=== PATIENT | female | born 1950 | race Caucasian/White ===

== ENCOUNTER 2017-07-10 16:49 | Inpatient (IN) | payer MEDICARE, MEDICAID ==
[2017-07-10] MEDS ORDERED: Morphine INJ* 2 MG/ML 1 ML SYRINGE IV ONE (17:03)
[2017-07-10] MEDS ORDERED: Ondansetron INJ* 2 MG/ML VIAL IV ONE (17:03)
--- NOTE | 2017-07-10 18:00 | RAD ---
HISTORY: Right hip fracture, fall, pain COMPARISONS: February 17, 2016 VIEWS:1: Single frontal portable view of the chest at 5:19 PM FINDINGS: LINES AND TUBES: None. CARDIOMEDIASTINAL SILHOUETTE: The cardiomediastinal silhouette is normal for portable technique. PLEURA: The costophrenic angles are sharp. No pleural abnormalities are noted. LUNG PARENCHYMA: The lungs are clear. ABDOMEN: The upper abdomen is clear. There is no subphrenic gas. BONES AND SOFT TISSUES: Degenerative changes are noted IMPRESSION: NO ACTIVE CARDIOPULMONARY DISEASE.
--- NOTE | 2017-07-10 18:02 | RAD ---
HISTORY: Right hip fracture, fall, pain COMPARISONS: Report of plain film dated July 10, 2017 VIEWS: 3, Frontal view of the pelvis with frontal and crosstable lateral views of the right hip FINDINGS: BONE DENSITY: There is diffuse osteopenia. BONES: There is a minimally displaced fracture of the right femoral neck. This appears acute. There is a fracture of the inferior pubic ramus on the right. There is callus formation suggestive of subacute fracture. JOINTS: There is no arthropathy. ALIGNMENT: There is no dislocation. SOFT TISSUES: Unremarkable. OTHER FINDINGS: None. IMPRESSION: 1. MINIMALLY DISPLACED ACUTE FRACTURE OF THE RIGHT FEMORAL NECK. 2. NONDISPLACED FRACTURE OF THE RIGHT INFERIOR PUBIC RAMUS WITH EVIDENCE OF CALLUS FORMATION SUGGESTIVE OF A SUBACUTE FRACTURE.
--- NOTE | 2017-07-10 18:03 | RAD ---
HISTORY: Fall, right knee pain COMPARISONS: July 09, 2015 VIEWS: 3, Frontal and lateral views of the right knee FINDINGS: BONE DENSITY: There is diffuse osteopenia. BONES: There is no displaced fracture. JOINTS: There is no arthropathy. There is no suprapatellar joint effusion or lipohemarthrosis. ALIGNMENT: There is no dislocation. SOFT TISSUES: Unremarkable. OTHER FINDINGS: None. IMPRESSION: OSTEOPENIA. NO ACUTE OSSEOUS INJURY. THE DEGREE OF OSTEOPENIA MAY MAKE A NONDISPLACED FRACTURE RADIOGRAPHICALLY OCCULT. IF SYMPTOMS PERSIST, RECOMMEND REPEAT IMAGING.
[2017-07-10 18:31] LABS: Hematocrit 37 % (35-47); Hemoglobin 12.3 g/dl (12.0-16.0); Mean Corpuscular HGB Conc 33 g/dl (31-36); Mean Corpuscular Hemoglobin 30 pg (27-31); Mean Corpuscular Volume 92 fL (80-97); Mean Platelet Volume 7 um3 (7.4-10.4); Red Blood Count 4.07 10^6/ul (4.0-5.4); Red Cell Distribution Width 14 % (10.5-15); White Blood Count 9.8 10^3/ul (3.5-10.8)
[2017-07-10 18:44] LABS: Albumin 4.3 g/dL (3.2-5.2); BUN/Creatinine Ratio 25.7 (8-20); Calcium 9.7 mg/dL (8.6-10.3); EGFR African American 107.7 (>60); EGFR Non-African American 83.7 (>60); Globulin 3.3 g/dL (2-4); Potassium 4.1 mmol/L (3.5-5.0); Total Bilirubin 0.4 mg/dL (0.2-1.0); Total Protein 7.6 g/dL (6.4-8.9)
[2017-07-10] MEDS ORDERED: Ondansetron INJ* 2 MG/ML VIAL IV PRN (18:51)
[2017-07-10] MEDS ORDERED: Magnesium Hydroxide LIQ* 30 ML UDC PO PRN (19:12)
[2017-07-10] MEDS ORDERED: oxyCODONE TAB* 5 MG TAB PO PRN (19:12)
[2017-07-10] MEDS ORDERED: Mirtazapine TAB* 15 MG PO PRN (19:12)
[2017-07-10] MEDS: Acetaminophen TAB* 325 MG PO SCH (21:19)
[2017-07-10] MEDS: Senna TAB PO SCH (21:19)
[2017-07-10] MEDS: Venlafaxine EXT RELEASE CAP* 75 MG PO SCH (21:20)
[2017-07-10] MEDS: Heparin VIAL(*) 5000 UNITS/ML VIAL (FIVE THOUSAND) SUBCUT SCH (21:23)
--- NOTE | 2017-07-10 23:43 | HP ---
CC: Tony Hinton; Dr. Beck * HISTORY AND PHYSICAL: DATE OF ADMISSION: 07/10/17 PRIMARY CARE PROVIDER: Tony Hinton. ATTENDING PHYSICIAN WHILE IN THE HOSPITAL: Dr. Citlali Guardado *(report being dictated by Castro Stewart NP) CONSULTING SURGEON: Dr. Beck. CHIEF COMPLAINT: Fall. HISTORY OF PRESENT ILLNESS: I would like to preface the report by saying that the patient has a significant amount of dementia. She really is unable to remember what happened. Most of the H and P was obtained from discussion with the patient's daughter, who staff told her what happened. Apparently, last night around 2 in the morning, the patient had rolled out of bed and has landed on the mats that are near her bed. She had been doing well, had not been really complaining of any pain. They got her back into bed last night. Unfortunately, today around lunch time, the patient's daughter was there, they tried getting her up from the chair into the bed and that is when they noticed that she was screaming out in pain and they noticed that she was grabbing her hip. At that point, the patient underwent x-ray at [facility] and it was found that she had a hip fracture. So, she was transferred to the hospital to be evaluated. The patient does not recall this. The patient does have a significant amount of advanced dementia. She has limited mobility at baseline and she is just wheelchair bound at times. She can walk small distances. There have been no recent reports of chest pain, fevers, chills. There have been no reports of nausea, vomiting, or diarrhea, and there have been no reports of change of medication. Because of the fracture, she came to the ER and we were asked to evaluate for admission. PAST MEDICAL HISTORY: Significant for: 1. Depression. 2. Dementia. 3. Chronic pain. 4. History of diverticulitis. 5. History of suicidal ideation. PAST SURGICAL HISTORY: 1. She has had an appendectomy. 2. She has had a partial colectomy. 3. Hysterectomy. MEDICATIONS: Home meds according to the [facility] paper work includes: 1. Senna 2 tabs p.o. b.i.d. 2. Vitamin D3 50,000 units p.o. monthly. 3. Risperdal 1 mg at 2 in the afternoon, 0.5 mg in the morning. 5. Remeron 15 mg at bedtime as needed for sleep. 4. Oxycodone 5 mg every 12 hours as needed for sleep. 5. Milk of mag 30 cc p.o. daily as needed. 6. Effexor 75 mg p.o. b.i.d. ALLERGIES TO MEDICATIONS: Include no known drug allergies. FAMILY HISTORY: Her mother had a history of dementia as did her father. SOCIAL HISTORY: She is a former smoker. She lives at [facility] now. She does not smoke. Surrogate decision maker is her daughter. REVIEW OF SYSTEMS: Unable to be obtained because of the patient's underlying dementia. PHYSICAL EXAMINATION GENERAL: At this time, Ms. Olguin is a 67-year-old female patient. She is sitting in the stretcher. She does not appear to be in any acute distress. She is pretty drowsy. She has received some narcotics prior to my evaluation. She is well nourished, well developed. VITAL SIGNS: Reveal blood pressure 113/74 with a pulse of 101, respirations 16 , O2 sat 98%, temperature 99.1. HEENT: Head: Atraumatic and normocephalic. Eyes: Sclerae are anicteric. Throat: Oral mucosa appears to be moist. No oropharyngeal erythema. NECK: Supple. LUNGS: Clear to auscultation. No wheezes, rales, or rhonchi. HEART: Sounds S1, S2. Regular rate and rhythm. No murmurs, rubs, or gallops. ABDOMEN: Soft, flat, nontender. Bowel sounds present. EXTREMITIES: Pulses were 2+ throughout. The right lower extremity was rotated and shortened compared to the left. Distal CSM checks were intact. NEUROLOGIC: She knows that she used to live in [place]. She knows her name, but she is confused to where she is now and the month. Speech was clear. She is drowsy, but she awakened and follows simple commands appropriately. She had no gross focal deficits. SKIN: Intact. DIAGNOSTIC STUDIES/LAB DATA: Today WBC of 9.8, RBC of 4.07, hemoglobin 12.3, hematocrit of 37, platelet count of 445. Sodium 139, potassium 4.1, chloride of 99, bicarb 32, BUN 18, creatinine 0.70, glucose 105, calcium 9.7. Total bili 0.4, AST 17, ALT 8, alk phos 127. Albumin of 4.3. She did have an EKG obtained today, which revealed a sinus tachycardia rate of 102. She had no ST elevations or T-wave inversions were noted at this point. It was reviewed to the previous EKG, it is similar, just the tachycardia is now new. She did have a knee x-ray obtained today, which revealed osteopenia. No acute osseous injuries. The degree of osteopenia may make a displaced fracture radiographically occult. Hip, pelvis x-ray showed minimally displaced acute fracture of the right femoral neck, a non-displaced fracture of the right inferior pubic rami with evidence of callus formation suggestive of subacute fracture. Chest x-ray obtained today, impression: No active cardiopulmonary disease. Old medical records were reviewed. ASSESSMENT AND PLAN: Ms. Olguin is a 67-year-old female patient coming in today with complaints of a fall. The patient will be admitted under inpatient status for: 1. Right hip fracture. At this point, her RCRI is actually 0, which gives her 0.4 risk of cardiac , non-fatal myocardial infarction, non-fatal cardiac arrest. The very concern is her preop mobility is quite limited, but I think that proceeding with surgery is beneficial given the fact that this will help her pain and that the daughter is very interested in pain control and palliation , which I think the surgery could offer the patient. She does not want to see her mother suffer from bedsores or pneumonia. She is at risk postoperatively because she has been fairly limited mobility status preop, but I think given her EKG is stable, chest x-ray is stable, I think she is medically optimized. I do not think there is anything more than we can do to optimize her for the proposed procedure. I do think that a Palliative Care consult because of her advanced dementia is probably appropriate and Dr. Beck will be following the patient for the hip fracture and I have ordered pain control. 2. History of depression. Continue with supportive care. 3. Dementia. Continue her Risperdal, supportive care, and again I did order a Palliative Care consult because of how advanced it is. 4. History of chronic pain. Continue with meds as prescribed. 5. DVT prophylaxis. She is high risk. She will be placed on heparin subcutaneous. 6. Fluids, electrolytes, and nutrition. She can have a regular diet and she will be n.p.o. after midnight. 7. Code status. She is a DNR. TIME SPENT: On the admission was approximately 60 minutes, greater than half the time was spent [id number] with the patient obtaining my history and physical, the other time spent going over the plan of care with the patient and implementing the plan of care. I did discuss the plan of care with my attending, Dr. Guardado; she is in agreement. CASTRO STEWART, CARMEN [id number]/[facility] #: [id number] JODI
[2017-07-11] MEDS: Acetaminophen TAB* 325 MG PO SCH ×4 (02:00→20:04)
[2017-07-11] MEDS: Heparin VIAL(*) 5000 UNITS/ML VIAL (FIVE THOUSAND) SUBCUT SCH ×2 (05:56→13:30)
[2017-07-11 06:39] LABS: Hematocrit 35 % (35-47); Hemoglobin 11.4 g/dl (12.0-16.0); Mean Corpuscular HGB Conc 33 g/dl (31-36); Mean Corpuscular Hemoglobin 31 pg (27-31); Mean Corpuscular Volume 93 fL (80-97); Mean Platelet Volume 7 um3 (7.4-10.4); Red Blood Count 3.73 10^6/ul (4.0-5.4); Red Cell Distribution Width 14 % (10.5-15); White Blood Count 9.3 10^3/ul (3.5-10.8)
[2017-07-11 06:47] LABS: BUN/Creatinine Ratio 31.5 (8-20); EGFR African American 145.3 (>60); Potassium 4.5 mmol/L (3.5-5.0)
[2017-07-11] MEDS: Senna TAB PO SCH ×2 (07:35→20:04)
[2017-07-11] MEDS: risperiDONE TAB* 1 MG PO SCH ×2 (07:35→13:31)
[2017-07-11] MEDS: Venlafaxine EXT RELEASE CAP* 75 MG PO SCH ×2 (07:35→20:04)
[2017-07-11] MEDS ORDERED: Famotidine IV* 10 MG/ML 2 ML (20 mg) ONE (08:29)
[2017-07-11] MEDS ORDERED: Succinylcholine* 20 MG/ML 10 ML VIAL ONE (08:29)
[2017-07-11] MEDS ORDERED: Dexamethasone IV* 4 MG/ML 1 ML (4 MG) ONE (08:29)
[2017-07-11] MEDS ORDERED: Propofol* 10 MG/ML 20 ML BTL IV PUSH ONE (08:29)
[2017-07-11] MEDS ORDERED: Ondansetron INJ* 2 MG/ML VIAL ONE (08:29)
[2017-07-11] MEDS ORDERED: Ketorolac INJ* 30 MG/ML 1 ML VIAL ONE (08:29)
[2017-07-11] MEDS ORDERED: Lidocaine 2% PF * 5 ML VIAL ONE (08:30)
[2017-07-11] MEDS ORDERED: ceFAZolin 2 GM PREMIX (*) 50 ML IVPB ONE (08:34)
[2017-07-11] MEDS ORDERED: Bupivacaine 0.5% SDV PF* 30 ML VIAL ONE (08:42)
[2017-07-11] MEDS ORDERED: ROPIVACAINE 5 MG/ML 30 ML BTL (0.5%) ONE (08:46)
[2017-07-11] MEDS ORDERED: Phenylephrine IV* 40 MCG/ML 10 ML SYRINGE ONE (08:55)
--- NOTE | 2017-07-11 09:31 | HP ---
CC: Primary Care Physician HISTORY AND PHYSICAL: DATE OF ADMISSION: 07/10/17 DATE OF SERVICE: 07/11/17 ATTENDING: Feng Beck MD. CHIEF COMPLAINT: Right hip pain. HISTORY OF PRESENT ILLNESS: Briefly, Chantel is a 67-year-old with advanced dementia, who is a res ident at [facility], that does not recall what happened, but per report has some right hip discomf ort. Supposedly at around 2 in the morning, the evening before last, the patient rolled out of bed and landed on the mat near her bed. She had been doing well. They noticed that she was screaming i n pain and grabbing at her hip. She underwent x-ray at [facility] and was diagnosed with a hip fr acture, and was transferred to be evaluated. The patient currently cannot recall this happening. S he does have a significant amount of advanced dementia. She is wheelchair bound, although she does walk small distances. No recent illness as per report. PAST MEDICAL HISTORY: Significant for advanced dementia, depression, chronic pain, diverticulitis, and history of suicidal ideation. PAST SURGICAL HISTORY: Significant for appendectomy, partial colectomy, and hysterectomy. HOME MEDICATIONS: Include: 1. Senna. 2. Vitamin D3. 3. Risperdal. 4. Remeron. 5. Oxycodone. 6. Milk of magnesia. 7. Effexor. ALLERGIES: NKDA. FAMILY HISTORY: Mother and father had history of dementia. SOCIAL HISTORY: She is former smoker, resident at [facility]. Surrogate decision maker is her anton caraballo. She does not smoke. REVIEW OF SYSTEMS: Review of systems is unable to be obtained from the patient, but as per notes an d communication with other people, she has not had any recent illnesses or fevers or chills. She do es have right hip pain, otherwise remainder of systems is negative. PHYSICAL EXAMINATION GENERAL: She is in no acute distress. She appears to be well developed and well nourished. She is sleepy, but arousable. She is not oriented to self or place. She is not oriented to her hip fractu re. She is thin and laying in the bed. VITAL SIGNS: Temperature of 98.2, pulse rate of 99, respiratory rate 16, O2 saturation 95% on room air, and blood pressure 113/69. HEENT: Atraumatic and normocephalic. Sclerae intact. She is able to look at me, but does not foll ow commands. CHEST: Clear to auscultation. HEART: Regular rate and rhythm. ABDOMEN: Soft. EXTREMITIES: Examination of the right lower extremity demonstrates the skin is intact. Her right l eg is shortened and slightly internally rotated compared to the left side. Her calf is soft. She d oes not acknowledge sensation to light touch grossly. She has 2+ PT pulse. She does flex and exten d her toes. DIAGNOSTIC STUDIES/LAB DATA: White blood cell count of 9.3, hematocrit of 35, platelet count 390. INR of 0.9. Sodium of 137, potassium 4.5, chloride 104, carbon dioxide 27, creatinine 0.54, BUN of 17, calcium of 9.0, glucose of 124. X- rays demonstrate right hip displaced femoral neck fracture. The report states that it is nondisplaced and valgus impacted, but it is not correct. ASSESSMENT AND PLAN: She has a right displaced femoral neck fracture. She has advanced dementia an d is a resident at [facility]. At this point, I would offer her right hip hemiarthroplasty. Risk s and benefits will be discussed with her daughter. Risks include, but are not limited to bleeding, infection, damage to nerves, vessels and surrounding structures, wound nonhealing, persistent pain, need for surgery, dislocation fracture, subsidence, risk of anesthesia, leg length inequality, inab ility to ambulate at the same level, risk of anesthesia. She is medically optimized per the physici an notes. We will take care of this on 07/11/17. [id number]/[facility] #: [id number]
[2017-07-11] MEDS ORDERED: fentaNYL* 50 MCG/ML 2 ML VIAL (100 MCG VIAL) ONE (09:53)
[2017-07-11] MEDS ORDERED: fentaNYL* 50 MCG/ML 2 ML VIAL (100 MCG VIAL) IV PRN (10:59)
[2017-07-11 11:58] LABS: Hematocrit 31 % (35-47); Hemoglobin 9.9 g/dl (12.0-16.0)
--- NOTE | 2017-07-11 12:00 | RAD ---
HISTORY: Status post right hip hemiarthroplasty COMPARISONS: July 10, 2017 VIEWS: 3, frontal views of the lower pelvis with frontal and crosstable lateral views of the right hip FINDINGS: BONE DENSITY: There is diffuse osteopenia. BONES: The patient is status post right hip arthroplasty. There is no hardware failure or osteolysis. Again noted is a subacute to chronic appearing fracture of the inferior pubic ramus on the right JOINTS: The patient is status post right hip arthroplasty ALIGNMENT: There is no dislocation. SOFT TISSUES: Unremarkable. OTHER FINDINGS: None. IMPRESSION: STATUS POST RIGHT HIP ARTHROPLASTY. STABLE INFERIOR PUBIC RAMUS FRACTURE
[2017-07-11] MEDS ORDERED: Morphine INJ* 2 MG/ML 1 ML SYRINGE IV PRN ×2 (13:50→14:11)
[2017-07-11] MEDS ORDERED: NS 0.9% 500 ML BAG* 500 ML IV SCH (15:00)
--- NOTE | 2017-07-11 16:50 | PN ---
Subjective Date of Service: 07/11/17 Interval History: Patient with advanced dementia and cannot answer my questions appropriately. Objective Active Medications: Acetaminophen (Tylenol Tab*) 650 mg PO Q6H [facility] Last Admin: 07/11/17 13:29 Dose: 650 mg Enoxaparin Sodium (Lovenox(*)) 30 mg SUBCUT 1200 [facility] Sodium Chloride (Ns 0.9% 1000 Ml*) 1,000 mls @ 100 mls/hr IV PER RATE [facility] Cefazolin Sodium 1 gm/ Sodium (Chloride) 50 mls @ 200 mls/hr IVPB Q8H [facility] Stop: 07/12/17 08:44 Magnesium Hydroxide (Milk Of Magnesia Liq*) 30 ml PO DAILY PRN PRN Reason: CONSTIPATION Mirtazapine (Remeron Tab*) 15 mg PO BEDTIME PRN PRN Reason: SLEEP Morphine Sulfate (Morphine Inj (Syringe)*) 2 mg IV Q4H PRN PRN Reason: PAIN Ondansetron HCl (Zofran Inj*) 4 mg IV Q6H PRN PRN Reason: NAUSEA Oxycodone HCl (Roxycodone Tab*) 5 mg PO Q12H PRN PRN Reason: PAIN Risperidone (Risperdal*) 0.5 mg PO DAILY [facility] Last Admin: 07/11/17 07:35 Dose: Not Given Risperidone (Risperdal*) 1 mg PO DAILY@1400 [facility] Last Admin: 07/11/17 13:31 Dose: 1 mg Senna (Senokot Tab*) 2 tab PO BID [facility] Last Admin: 07/11/17 07:35 Dose: Not Given Venlafaxine HCl (Effexor Xr Cap*) 75 mg PO BID [facility] Last Admin: 07/11/17 07:35 Dose: Not Given Vital Signs 07/10/17 07/10/17 07/10/17 19:00 19:30 20:00 Temperature Pulse Rate 105 101 109 Respiratory Rate Blood Pressure 100/71 111/77 (mmHg) O2 Sat by Pulse 98 99 98 Oximetry 07/10/17 07/10/17 07/10/17 20:30 20:51 21:18 Temperature 98.1 F 98.0 F Pulse Rate 105 103 Respiratory 16 Rate Blood Pressure 94/67 112/97 (mmHg) O2 Sat by Pulse 98 100 Oximetry 07/10/17 07/10/17 07/11/17 22:43 23:50 04:15 Temperature 98.5 F 98.2 F Pulse Rate 102 99 Respiratory 14 18 16 Rate Blood Pressure 151/95 113/69 (mmHg) O2 Sat by Pulse 99 95 Oximetry 07/11/17 07/11/17 07/11/17 07:36 10:55 11:00 Temperature 98.8 F Pulse Rate 116 119 Respiratory 16 16 16 Rate Blood Pressure 119/75 114/73 (mmHg) O2 Sat by Pulse 98 99 Oximetry 07/11/17 07/11/17 07/11/17 11:05 11:10 11:15 Temperature Pulse Rate 120 118 115 Respiratory 16 16 16 Rate Blood Pressure 114/72 97/68 123/85 (mmHg) O2 Sat by Pulse 98 98 100 Oximetry 07/11/17 07/11/17 07/11/17 11:30 11:45 12:13 Temperature 98.2 F Pulse Rate 115 112 116 Respiratory 16 16 16 Rate Blood Pressure 119/83 114/88 90/70 (mmHg) O2 Sat by Pulse 98 98 100 Oximetry 07/11/17 07/11/17 07/11/17 13:47 14:01 14:07 Temperature 98.5 F Pulse Rate 165 120 Respiratory 20 Rate Blood Pressure 86/70 82/62 (mmHg) O2 Sat by Pulse Oximetry 07/11/17 14:55 Temperature 97.4 F Pulse Rate 121 Respiratory 16 Rate Blood Pressure 84/60 (mmHg) O2 Sat by Pulse 99 Oximetry Oxygen Devices in Use Now: Nasal Cannula Appearance: Elderly woman lying in bed in NAD Eyes: No Scleral Icterus Ears/Nose/Mouth/Throat: Clear Oropharnyx Neck: No Thyroid Enlargement, Masses Respiratory: Clear to Auscultation Cardiovascular: - - S1S2 doretha Abdominal: NL Sounds; No Tenderness; No Distention, No Hepatosplenomegaly Lymphatic: No Cervical Adenopathy Extremities: No Clubbing, Cyanosis Skin: No Rash or Ulcers Neurological: - - Alert and oriented X 1 Result Diagrams: 07/11/17 11:49 07/11/17 06:08 Microbiology and Other Data: Microbiology 07/10/17 20:25 Nasal Screen MRSA (PCR)(YI) - Final Nasal Mrsa Negative Assess/Plan/Problems-Billing Assessment: 67 year old woman who fell and found to have a right hip fracture. - Patient Problems (1) Closed right hip fracture Current Visit: Yes Status: Acute Code(s): S72.001A - FRACTURE OF UNSP PART OF NECK OF RIGHT FEMUR, INIT SNOMED Code(s): 959394109 Comment: S/P right hip hemiarthroplasty. management as per ortho. (2) Dementia Current Visit: No Status: Acute Priority: High Onset Date: 09/25/15 Code (s): F03.90 - UNSPECIFIED DEMENTIA WITHOUT BEHAVIORAL DISTURBANCE SNOMED Code( s): 08266528 Comment: Currently on no treatment. Risperidone for agitation (3) Depression Current Visit: No Status: Chronic Priority: High Onset Date: 09/25/15 Code(s): F32.9 - MAJOR DEPRESSIVE DISORDER, SINGLE EPISODE, UNSPECIFIED SNOMED Code(s): 96766062 Comment: Continue Remeron and Effexor. Stable. (4) DVT prophylaxis Current Visit: No Status: Acute Code(s): KUC1415 - SNOMED Code(s): 047579626 Comment: Lovenox sq (5) DNR (do not resuscitate) Current Visit: Yes Status: Acute
[2017-07-11] MEDS: ceFAZolin 1 GM* Q8H x 3 doses IVPB SCH ×2 (16:56)
[2017-07-11] MEDS: NS 0.9% 1000 ML* 1,000 ML IV SCH ×2 (17:00→23:01)
[2017-07-11] MEDS ORDERED: NS 0.9% IV ONE (21:00)
[2017-07-12] MEDS: ceFAZolin 1 GM* Q8H x 3 doses IVPB SCH ×4 (00:18→07:48)
[2017-07-12] MEDS: Acetaminophen TAB* 325 MG PO SCH ×4 (01:50→20:10)
--- NOTE | 2017-07-12 05:03 | OP ---
CC: PCP at [facility] * DATE OF OPERATION: 07/11/17 - ROOM #349 DATE OF : 52 SURGEON: Feng Beck MD DRUG DEPARTMENT WORKER: MARIBETH Alfaro ANESTHESIOLOGIST: Dr. Marie ANESTHESIA: General PRE-OP DIAGNOSES: Right hip displaced femoral neck fracture. POST-OP DIAGNOSES: Right hip displaced femoral neck fracture. OPERATIVE PROCEDURE: Right hip hemiarthroplasty. COMPLICATIONS: None. ESTIMATED BLOOD LOSS: About 200. Ch output as per the Anesthesia record. IMPLANTS USED: Haynes Accolade 127-degree neck angle size 1, Haynes +4 offset femoral head, and size 43 bipolar component. INDICATIONS: Chantel Olguin is a 67-year-old resident at [facility] with advanced dementia, who sustained a fall evening before last. Initially, she landed on her mats by the side of her bed. There was no indication that she had any hip pain until yesterday when she was mobilized or moved and she had severe pain. She underwent x-ray at [facility] and was then diagnosed with a hip fracture, and transferred to [facility] for definitive management. She was diagnosed with a right hip displaced femoral neck fracture. Risks and benefits to surgery versus nonoperative treatment were discussed at length and the family has elected to proceed with surgery. Risks include, but are not limited to bleeding, infection, damage to nerves, vessels, or surrounding structures, wound nonhealing, persistent pain, need for further surgery, scarring, stiffness , leg length inequality, risk of DVT, dislocation, intraoperative fracture, incomplete relief of symptoms, loss of mobility and mortality as well as risk of anesthesia. DESCRIPTION OF PROCEDURE: The patient was greeted in the preoperative area by the attending surgeon. Correct extremity was marked and consent was confirmed. The patient was brought back to the operating suite where she was placed in a supine position on the operating table. She then underwent general anesthesia with endotracheal intubation after which the patient was positioned in the left lateral decubitus position with all bony prominences padded. She was supported with the peg board and axillary roll. The right leg was then prepped and draped in the usual sterile fashion beginning with chlorhexidine, soap scrub, and alcohol scrub and then a final prep with ChloraPrep. After appropriate surgical pause indicating side, site and procedure, administration of antibiotics, the posterolateral incision was made sharply over the hip. The soft tissues were carefully dissected and exposed the IT band fascia. The fascia was then sharply incised and a large bursa was developed. The bursectomy was then done. The leg was then gently internally rotated to put stretch on the external rotators and the piriformis tendon was identified and then marked with a stay suture and released as well as the external rotators. Hemostasis was obtained with the electrocautery device and suture ties. The capsule was then incised as well and this was incised with the 10 blade as well as an electrocautery device. This exposed the femoral neck fracture. At this point, a provisional femoral neck cut was then made using a sagittal saw. Once the excess bone was removed, attention was directed to the femoral head, which was then removed from its socket using the corkscrew device in its entirety and sized to be around 41-42. Trials of 41 and 43 heads were then placed. The 42 had too much give and the 43 had an appropriate amount of suction fit. So, this was chosen as the trial component. At this point, all excess ligamentum and debris were removed from the cup itself. Attention was then directed to the femoral neck, the leg was placed in internal rotation with adduction with the design assistant holding the leg. The femoral neck was exposed, The soft tissues were carefully removed to expose the lateral aspect and then a box cut guide was used to access the lateral portion of the canal. A canal finder was then used to find the canal. The patient's anatomy was very small. The starting broach was then placed and found to have a good fit. At this point, a trial was done and it was found that there is a little bit too much play. Therefore, the broaching was done once more. There was too much play at this point, the neck was found to be somewhat high, so this neck was cut again. The broaches were placed again and now a size #1 was able to fit appropriately with excellent purchase. At this point, trial components were placed. We trialed such that that the patient was more tighter than loose, so there was less of a risk for dislocation. It was found to be stable with appropriate soft tissue tension and appropriate shuck. Once this was determined , the final implants were identified as that are listed above. These were then impacted into place. The wounds were copiously irrigated with sterile saline. The hip was gently reduced, taken through a range of motion and was found to be stable. Again, it was tight somewhat in extension to allow for more rigid fit and prevent risk of dislocation postoperatively. Once the final implants were in place, the wound was copiously irrigated with sterile saline. The fascia was closed with 0 Vicryl in an interrupted fashion, the subcutaneous tissues were closed with 2-0 Vicryl, and skin was closed with rosa. 0.25% Marcaine plain was used to inject the incisions. Sterile dressings were applied. The patient was then placed in supine position and an abduction pillow was placed. She was awoken from anesthesia and transferred to PACU in stable condition. POSTOPERATIVE PLAN: She will be weightbearing as tolerated. We will observe posterior hip precautions for 6 weeks. She will be in an abduction brace or a knee immobilizer for the first 6 weeks while in bed due to her dementia. She will receive 24 hours of postoperative antibiotics. Ch will be discontinued on postop day 1. DVT prophylaxis was considered and she because of her hip fracture will be on at least 6 weeks of low molecular weight heparin. She will be discharged likely back to her SNF. I will see the patient back in 10 to 14 days. Postoperatively, we will follow her in-house. [id number]/[facility] #: [id number] JODI
[2017-07-12] MEDS: risperiDONE TAB* 1 MG PO SCH ×2 (07:47→14:26)
[2017-07-12] MEDS: Senna TAB PO SCH ×2 (07:47→20:10)
[2017-07-12] MEDS: Venlafaxine EXT RELEASE CAP* 75 MG PO SCH ×2 (07:47→20:10)
[2017-07-12] MEDS: NS 0.9% 1000 ML* 1,000 ML IV SCH (07:51)
--- NOTE | 2017-07-12 10:02 | PN ---
Progress Note - Progress Note Date of Service: 07/12/17 SOAP: Subjective: []Patient seen OOB in chair, daughter present. She is sleepy but does open eyes to voice, confused. C/o right hip pain when asked. Objective: [] Vital Signs Temp 98.0 F 07/12/17 07:31 Pulse 75 07/12/17 07:31 Resp 18 07/12/17 07:54 BP 107/57 07/12/17 07:31 Pulse Ox 100 07/12/17 07:54 Intake & Output 07/11/17 07/12/17 07/12/17 18:59 06:59 18:59 Intake Total 1180 2725 Output Total 600 200 0 Balance 580 2525 0 Intake: IV Fluids 1030 2490 LR 900 NS (0.9%) 130 2490 IVPB 100 ABX - CEFAZOLIN 100 Oral 150 135 Output: Urine 200 Ch 200 200 0 Estimated Blood Loss 200 Other: Other Amount Description Ch catheter output not documented by aide Laboratory Results - last 24 hr 07/11/17 11:49 Hgb 9.9 L Hct 31 L Right hip dressing is dry and intact able to wiggle toes right foot calf non tender and soft distal NVI RLE Assessment: []s/p Right hip hemiarthroplasty POD #1 Plan: []PT/OT WBAT RLE Lovenox Back to [facility] when medically and orthopedically stable
[2017-07-12] MEDS: Enoxaparin(*) 30 MG/0.3 ML SYR SUBCUT SCH (12:19)
--- NOTE | 2017-07-12 17:34 | PN ---
Subjective Date of Service: 07/12/17 Interval History: Patient very fatigued and only responds to my questions by saying good morning. Objective Active Medications: Acetaminophen (Tylenol Tab*) 650 mg PO 0200,0800,1600,2000 [facility] Last Admin: 07/12/17 15:15 Dose: 650 mg Enoxaparin Sodium (Lovenox(*)) 30 mg SUBCUT 1200 [facility] Last Admin: 07/12/17 12:19 Dose: 30 mg Sodium Chloride (Ns 0.9% 1000 Ml*) 1,000 mls @ 100 mls/hr IV PER RATE [facility] Last Admin: 07/12/17 07:51 Dose: 100 mls/hr Magnesium Hydroxide (Milk Of Magnesia Liq*) 30 ml PO DAILY PRN PRN Reason: CONSTIPATION Mirtazapine (Remeron Tab*) 15 mg PO BEDTIME PRN PRN Reason: SLEEP Morphine Sulfate (Morphine Inj (Syringe)*) 2 mg IV Q4H PRN PRN Reason: PAIN Ondansetron HCl (Zofran Inj*) 4 mg IV Q6H PRN PRN Reason: NAUSEA Oxycodone HCl (Roxycodone Tab*) 5 mg PO Q12H PRN PRN Reason: PAIN Risperidone (Risperdal*) 0.5 mg PO DAILY [facility] Last Admin: 07/12/17 07:47 Dose: 0.5 mg Risperidone (Risperdal*) 1 mg PO DAILY@1400 [facility] Last Admin: 07/12/17 14:26 Dose: 1 mg Senna (Senokot Tab*) 2 tab PO BID [facility] Last Admin: 07/12/17 07:47 Dose: 2 tab Venlafaxine HCl (Effexor Xr Cap*) 75 mg PO BID [facility] Last Admin: 07/12/17 07:47 Dose: 75 mg Vital Signs 07/11/17 07/11/17 07/11/17 19:11 19:22 19:23 Temperature 97.5 F Pulse Rate 114 Respiratory 15 17 17 Rate Blood Pressure 98/56 (mmHg) O2 Sat by Pulse 98 Oximetry 07/11/17 07/12/17 07/12/17 23:07 03:34 07:31 Temperature 98.4 F 97.9 F 98.0 F Pulse Rate 87 79 75 Respiratory 14 16 18 Rate Blood Pressure 97/58 90/59 107/57 (mmHg) O2 Sat by Pulse 100 100 90 Oximetry 07/12/17 07/12/17 07/12/17 07:54 11:49 15:45 Temperature 98.5 F 98.7 F Pulse Rate 78 98 Respiratory 16 16 18 Rate Blood Pressure 94/50 99/59 (mmHg) O2 Sat by Pulse 100 91 94 Oximetry 07/12/17 16:00 Temperature Pulse Rate Respiratory Rate Blood Pressure (mmHg) O2 Sat by Pulse 94 Oximetry Oxygen Devices in Use Now: Nasal Cannula Appearance: Eldrly woman lying in bed in NAD Ears/Nose/Mouth/Throat: Clear Oropharnyx Neck: No Thyroid Enlargement, Masses Respiratory: Clear to Auscultation Cardiovascular: - - S1S2 doretha Abdominal: NL Sounds; No Tenderness; No Distention, No Hepatosplenomegaly Lymphatic: No Cervical Adenopathy Extremities: No Clubbing, Cyanosis Skin: No Rash or Ulcers Neurological: - - Alert and oriented X 1 Result Diagrams: 07/11/17 11:49 07/11/17 06:08 Microbiology and Other Data: Microbiology 07/10/17 20:25 Nasal Screen MRSA (PCR)(YI) - Final Nasal Mrsa Negative Assess/Plan/Problems-Billing Assessment: 67 year old woman who fell and found to have a right hip fracture. - Patient Problems (1) Closed right hip fracture Current Visit: Yes Status: Acute Code(s): S72.001A - FRACTURE OF UNSP PART OF NECK OF RIGHT FEMUR, INIT SNOMED Code(s): 055858588 Comment: S/P right hip hemiarthroplasty. management as per ortho. (2) Altered mental status Current Visit: Yes Status: Acute Code(s): R41.82 - ALTERED MENTAL STATUS, UNSPECIFIED SNOMED Code(s): 310496760 Comment: Apparently the family says she is more confused than usual. However , she was completely disoriented even before surgery and anesthesia yesterday. It is unclear why she is so fatigued today. No pain meds yet as per nursing. Monitor. If no improvement soon consider workup including abg, CT scan etc. (3) Dementia Current Visit: No Status: Acute Priority: High Onset Date: 09/25/15 Code (s): F03.90 - UNSPECIFIED DEMENTIA WITHOUT BEHAVIORAL DISTURBANCE SNOMED Code( s): 42850777 Comment: Currently on no treatment. Risperidone for agitation (4) Depression Current Visit: No Status: Chronic Priority: High Onset Date: 09/25/15 Code(s): F32.9 - MAJOR DEPRESSIVE DISORDER, SINGLE EPISODE, UNSPECIFIED SNOMED Code(s): 95961314 Comment: Continue Remeron and Effexor. Stable. (5) DVT prophylaxis Current Visit: No Status: Acute Code(s): IIB6742 - SNOMED Code(s): 511916849 Comment: Lovenox sq (6) DNR (do not resuscitate) Current Visit: Yes Status: Acute
--- NOTE | 2017-07-12 21:00 | CONS ---
CC: Primary Care Physician, [facility]; Castro Stewart NP * PALLIATIVE CARE CONSULTATION REPORT: DATE OF CONSULT: 07/12/17 REFERRING PROVIDER: Castro Stewart NP HOSPITAL COURSE: This is a 67-year-old female with a past medical history of advanced Alzheimer's dementia, who presented from [facility] after having a fall and complaining of pain with ambulating, found to have a right hip fracture. The patient was admitted on 07/10/17 to the hospitalist service with Ortho consultation. Dr. Beck evaluated the patient and took her to the OR on the morning of 07/11/17 and completed a right hip hemiarthroplasty. The patient was also noted to have a right inferior nondisplaced pubic rami fracture. On my encounter, the daughter, Mari Holt, and the partner, Abdiaziz Stauffer of 20 years, who were at the bedside. They state the patient has early-onset Alzheimer's dementia. She has gotten progressively worse over the last 3 months, less conversive, decrease in appetite with weight loss. She is unable to specify how much weight she has lost. She does suffer from short-term memory; however, she still recognizes her family. She does walk with assistance, but does occasionally go in the wheelchair if she is complaining of pain. She is not able to express her needs, but when asked question, she is able to say "yes or no" and she is incontinent as well. Family states after her surgery yesterday on 07/11/17, she was awake and interacting and pleasant. The staff states she has slept well last evening with no agitation and did not get any narcotics during the night or today and she has been sleeping most of the day with difficulty arousing. The patient did have about 2 bites of oatmeal at breakfast this morning, otherwise has not really woken up. We did check a glucose, it was 119. She does awake to tactile stimuli, but does not open her eyes or become interactive at all, barely responded to her vitals and glucose being taken. Otherwise, unable to obtain review of systems. I did speak with the family regarding her dementia is advanced, but not qualifying for hospice eligibility at this point; however, it seems that she did wake up postoperatively and now is more somnolent and not taking any p.o. that would recommend looking for reversible causes and if she does not perk up and become more alert to tolerate p.o., then she may be eligible for hospice sooner rather than attempting to go back to [facility] with rehab. The family is agreeable to this. I also reviewed the MOLST form and completed that as well. She is a DNR/DNI and do not hospitalize. PAST MEDICAL HISTORY: 1. Advanced Alzheimer's dementia. 2. Osteopenia. 3. Depression. 4. History of chronic pain. 5. History of diverticulitis. 6. History of suicidal ideation. PAST SURGICAL HISTORY: 1. History of appendectomy. 2. History of partial colectomy. 3. History of hysterectomy. MEDICATIONS: Inpatient medications: 1. Tylenol 650 mg 4 times a day. 2. Lovenox 30 mg subcu daily. 3. Magnesium hydroxide 30 mL daily as needed. 4. Mirtazapine 15 mg p.o. at bedtime. 5. Morphine 2 mg IV q.4 hours as needed. 6. Normal saline at 100 cc an hour. 7. Zofran 4 mg q.6 hours as needed. 8. Senna 2 tabs p.o. b.i.d. 9. Venlafaxine 25 mg p.o. b.i.d. 10. Oxycodone 5 mg p.o. q.12 hours as needed. 11. Risperidone 0.5 mg p.o. daily. 12. Risperidone 1 mg p.o. daily at 1400. ALLERGIES: No known drug allergies. FAMILY HISTORY: Significant family history of early-onset Alzheimer's dementia. SOCIAL HISTORY: As mentioned, the patient has been living at [facility] for the past 15 months due to advanced Alzheimer's dementia. She is a former smoker. No alcohol use. Her healthcare proxies are her daughter, Mari Holt, and her partner, Abdiaziz Stauffer. MOLST form has been completed on my encounter, it is a DNR/DNI. REVIEW OF SYSTEMS: Unable to obtain due to the patient's altered mental status. PHYSICAL EXAM: Vitals: Temp 98, pulse rate 75, respiratory rate 16, oxygen saturation 100% on room air, blood pressure 107/57. General: No acute distress , sleeping, slightly arose to tactile stimuli. Family is at the bedside. HEENT : Head is normocephalic. Neck: Supple. No lymphadenopathy. Pupils are reactive and anicteric. Oropharynx: Mucous membranes moist. Cardiac: Regular rate and rhythm, soft systolic murmur heard throughout. Respiratory: Diminished breath sounds. No wheezing, rhonchi, or rales. Abdomen is soft, nontender, and nondistended. Extremities: No clubbing, cyanosis, or edema. +1 DPs. Neurologic: The patient appears to be sedated. Unable to awake and follow any commands. Did not appreciate any spontaneous movement of her extremities. DIAGNOSTIC STUDIES/LAB DATA: White count 9.3, hemoglobin 9.9, hematocrit 31, platelets 390. INR 0.91. Sodium 137, potassium 4.5, chloride 104, bicarb 27, BUN 17, creatinine 0.54, glucose 119. Albumin on admission was 4.3. Radiographic data: Shows minimally displaced acute fracture of the right femoral neck, nondisplaced fracture of the right inferior pubic rami with evidence of callus formation suggestive of subacute fracture. ASSESSMENT AND PLAN: This is a 67-year-old female with past medical history of advanced dementia who presented from [facility] after having a fall, found to have a right hip fracture status post repair. The patient with advanced dementia, but not yet eligible based on her baseline mental status for hospice; however, she is still quite somnolent and sedated more than 24 hours postoperatively. I discussed with the family that keeping her n.p.o. for now until she is safe to be allowed to eat or drink and then having Speech Therapy see her tomorrow for a formal speech therapy evaluation. If the patient does not wake up and become more appropriate, not tolerating p.o., then she would become appropriate for hospice. If she is not waking up, I would recommend searching for reversible causes and I will relay this communication with Dr. Esparza, primary hospitalist. Otherwise, if she wakes up, then trial of rehab is appropriate but with close followup with someone with a diagnosis of Alzheimer's dementia and the family is aware that they can refer her to hospice care if they feel it is appropriate as well. Also of note, the MOLST form has been completed. Thank you for this consultation. PATIENT TIME: Greater than 90 minutes was spent doing this consultation, more than half the time spent in direct patient contact. [id number]/[facility] #: [id number] [facility] CENTERFl[place]
--- NOTE | 2017-07-12 22:21 | PN ---
Progress Note - Progress Note Date of Service: 07/12/17 Note: POD#1 from R hip dorie. Pleasant but not oriented. Unable to follow commands. Abduction pillow at window. Left hip flex, right hip extended. No immobilizer present. Seen at around 7 pm Temp Pulse Resp BP Pulse Ox 98.7 F 103 16 142/100 92 07/12/17 15:45 07/12/17 20:01 07/12/17 20:01 07/12/17 20:01 07/12/17 20:[address]. leg extended. Able to flex/ext toes. unable to assess sensation. calf soft and compressible. brisk cap refill POD#1 from R hip dorie posterior hip precautions. pt with advanced dementia. needs either knee immobilizer or abduction brace on at all times in bed. dvt ppx completed post op abx dressing loving tomorrow wbat dispo snf when stable
[2017-07-13] MEDS: Acetaminophen TAB* 325 MG PO SCH ×2 (01:50→09:34)
[2017-07-13] MEDS: NS 0.9% 1000 ML* 1,000 ML IV SCH (03:42)
[2017-07-13] MEDS: risperiDONE TAB* 1 MG PO SCH ×2 (09:34→14:47)
[2017-07-13] MEDS: Senna TAB PO SCH (09:34)
[2017-07-13] MEDS: Venlafaxine EXT RELEASE CAP* 75 MG PO SCH (09:35)
[2017-07-13 12:17] VITALS: BP 95/50
[2017-07-13] MEDS: Enoxaparin(*) 30 MG/0.3 ML SYR SUBCUT SCH (12:35)
--- NOTE | 2017-07-13 13:01 | PN ---
Progress Note - Progress Note Date of Service: 07/13/17 SOAP: Subjective: []Patient seen at bedside. She is pleasantly confused. Appears comfortable. Objective: [] Vital Signs Temp 98.5 F 07/13/17 11:09 Pulse 101 07/13/17 11:09 Resp 18 07/13/17 12:36 BP 95/50 07/13/17 11:09 Pulse Ox 96 07/13/17 11:09 Intake & Output 07/12/17 07/13/17 07/13/17 18:59 06:59 18:59 Intake Total 1188 1425 258 Output Total 300 1650 850 Balance 888 -225 -592 Intake: IV Fluids 1125 138 NS (0.9%) 1125 138 IVPB 1188 ABX - CEFAZOLIN 60 NS (0.9%) 1128 Oral 0 300 120 Output: Urine 550 Hc 300 1100 850 Other: # Bowel Movements o Right hip dressings were removed, old dried bloody drainage on dressings, wound benign new 4x4s and paper tape applied to wound calf soft and NT sensation intact/ 2+pedal pulse Assessment: []s/p Right hip hemiarthroplasty for femoral neck fracture POD #2 Plan: []PT is able, WBAT RLE Lovenox Await SNF rehab vs hospice care
--- NOTE | 2017-07-13 15:40 | DS ---
CC: Dr. Beck * DISCHARGE SUMMARY: DATE OF ADMISSION: 07/10/17 DATE OF DISCHARGE: 07/13/17 PRIMARY CARE PROVIDER: At [facility]. PRIMARY DIAGNOSIS: Right hip fracture status post hemiarthroplasty. SECONDARY DIAGNOSES: 1. Advanced dementia. 2. Depression. 3. Chronic pain. PERTINENT LABORATORY DATA: Last hemoglobin 9.9 on 07/11/17. PROCEDURES PERFORMED DURING THE HOSPITAL STAY: Hemiarthroplasty on 07/11/[address] Beck. ACTIVITY: Weightbearing as tolerated. DIET: Unrestricted with Ensure at every meal. MEDICATIONS ON DISCHARGE: 1. Senna 2 tablets twice daily. 2. Cholecalciferol 50,000 units monthly. 3. Risperidone 0.5 mg in the morning and 1 mg at 2 p.m. 4. Remeron 15 mg at bedtime as needed for sleep. 5. Oxycodone 5 mg every 12 hours as needed for pain. 6. Magnesium hydroxide liquid 30 mL daily as needed for constipation. 7. Effexor XR 75 mg twice daily. 8. Lovenox 30 mg subcutaneously daily for 30 additional days. 9. Acetaminophen 650 mg every 6 hours as needed for pain. HISTORY OF PRESENT ILLNESS AND HOSPITAL COURSE: This is a 67-year-old female with past medical history of advanced early dementia, presented to the hospital with a fall at home, suffered a right hip fracture, went to operating room with Dr. Beck and underwent right hemiarthroplasty without complication. Status post the procedure, she was more lethargic than usual; however, woke up without intervention. On the day of discharge, she was A and O x1 to herself, quite awake, yelling at some of the staff all over, interacted with this author. There are no complications during the hospital stay. At followup please; 1. Evaluate for continued physical therapy needs. 2. Please evaluate for continued need of Lovenox, prescribed for 30 days, continue or discontinue at your discretion. 3. No other specific labs or vitals that need follow. TIME SPENT: Greater than 30 minutes was spent on discharge of this patient, greater than half was spent [id number] with the patient. [id number]/[facility] #: [id number] MTDD
== END 2017-07-13 16:30 | DRG 470 ==
LOC: ED 16:49 → SSU 18:48
PROVIDERS: ADMIT Internal Medicine; ATTEND Internal Medicine
PROC: 0SRR03Z Replacement of Right Hip Joint, Femoral Surface with Ceramic Synthetic Substitute, Open Approach (ICD-10-PCS; principal; 2017-07-11 08:30)
DX: S72.001A Fracture of unspecified part of neck of right femur, initial encounter for closed fracture (principal); G30.9 Alzheimer's disease, unspecified; F02.80 Dementia in other diseases classified elsewhere, unspecified severity, without behavioral disturbance, psychotic disturbance, mood disturbance, and anxiety; Y92.003 Bedroom of unspecified non-institutional (private) residence as the place of occurrence of the external cause; W17.89XA Other fall from one level to another, initial encounter; F32.9 Major depressive disorder, single episode, unspecified; G89.29 Other chronic pain; Z90.710 Acquired absence of both cervix and uterus; Z99.3 Dependence on wheelchair; Z82.0 Family history of epilepsy and other diseases of the nervous system; Z87.891 Personal history of nicotine dependence; R00.0 Tachycardia, unspecified; M25.751 Osteophyte, right hip; Z66 Do not resuscitate; R40.0 Somnolence; R53.83 Other fatigue
CPT/HCPCS: 36415; 71010; 80048; 80053; 85014; 85018; 85025; 85027; 85610; 87641; 93005; A9270-GY; C1776; G8996-GN-CK; G8997-GN-CK; G8998-GN-CK; J0330; J0690; J1100; J1644; J1650; J1885; J2270; J2405; J2704; J2795; J3010

== ENCOUNTER 2017-07-22 14:27 | Inpatient (IN) | payer MEDICARE, MEDICAID ==
[2017-07-22] MEDS ORDERED: NS 0.9% 1000 ML* 1,000 ML IV ONE (14:47)
[2017-07-22 15:15] LABS: Hematocrit 24 % (35-47); Hemoglobin 7.6 g/dl (12.0-16.0); Mean Corpuscular HGB Conc 32 g/dl (31-36); Mean Corpuscular Hemoglobin 30 pg (27-31); Mean Corpuscular Volume 92 fL (80-97); Mean Platelet Volume 6 um3 (7.4-10.4); Red Blood Count 2.57 10^6/ul (4.0-5.4); Red Cell Distribution Width 15 % (10.5-15)
[2017-07-22 15:36] LABS: Albumin 3.4 g/dL (3.2-5.2); BUN/Creatinine Ratio 20.3 (8-20); C Reactive Protein 1.96 mg/L (< 5.00); Calcium 8.9 mg/dL (8.6-10.3); EGFR African American 131.2 (>60); Globulin 2.8 g/dL (2-4); Magnesium 2.5 mg/dL (1.9-2.7); Total Bilirubin 0.5 mg/dL (0.2-1.0); Total Protein 6.2 g/dL (6.4-8.9)
--- NOTE | 2017-07-22 15:42 | RAD ---
Indication: Fall, head injury. CT of the brain was performed without IV contrast. Motion artifact degrades the images. Ventricular structures are midline. No midline shift is noted. There is no evidence of mass or hemorrhage. No other high or low density lesions are identified. Basal ganglia calcifications are noted bilaterally which are stable. Mastoid air cells and paranasal sinuses are otherwise unremarkable. IMPRESSION: No intracranial mass or hemorrhage is noted. Limited study by motion artifact.
--- NOTE | 2017-07-22 15:48 | RAD ---
INDICATION: Trauma. COMPARISON: There are no prior studies available for comparison. TECHNIQUE: Contiguous axial sections were obtained from the skull base through the T3 vertebra. Images were reconstructed in the sagittal and coronal planes. FINDINGS: There is straightening and reversal of the normal cervical lordosis. No prevertebral soft tissue swelling or acute fracture is seen. There is a mild compression fracture of the superior endplate of the T4 vertebral body which appears to be subacute to chronic in duration. At the C5-C6 level there is mild to moderate posterior endplate spurring which causes mild spinal canal narrowing and mild to moderate bilateral neural foraminal narrowing. At the C6-C7 level there is also mild posterior uncinate process spurring. No significant spinal canal or neural foraminal narrowing is seen. The remaining disc spaces appear maintained. IMPRESSION: 1. NO EVIDENCE FOR ACUTE FRACTURE OR SUBLUXATION. 2. MILD COMPRESSION FRACTURE OF THE SUPERIOR ENDPLATE OF THE T4 VERTEBRAL BODY LIKELY SUBACUTE TO CHRONIC IN DURATION. 3. MILD CERVICAL SPONDYLOSIS.
[2017-07-22 15:54] LABS: TSH (Thyroid Stimulating Horm) 2.29 mcIU/mL (0.34-5.60)
--- NOTE | 2017-07-22 16:06 | RAD ---
Indication: Confusion. Single frontal view of the chest performed at 1555 hours was reviewed. Comparison is made with previous exam dated July 10, 2017. No mediastinal shift is noted. Heart is of normal size and configuration. Lung gudino appear clear. No significant change is noted since prior exam. IMPRESSION: NO ACTIVE CARDIOPULMONARY DISEASE IS NOTED.
[2017-07-22 17:29] LABS: Urine Bacteria Absent (Absent); Urine Bilirubin Negative (Negative); Urine Glucose Negative (Negative); Urine Nitrite Negative (Negative)
[2017-07-22] MEDS ORDERED: cefTRIAXone(*) 1 GM in NS 0.9% 50 ML* 50 ML IVPB ONE (17:50)
--- NOTE | 2017-07-22 17:52 | ED ---
Claudio Taylor Benjamin, scribed for Nemesio Stewart MD on 07/22/17 at 1602 . Altered Mental Status - HPI Summary HPI Summary: This patient is a 67 year old F BIBA from [facility] accompanied by daughter s/p a fall yesterday. Pt was admitted to [facility] from 07/10/17 to 07/13/17 with a primary diagnosis of right hip fracture status post hemiarthroplasty. The patient rates the pain 0/10 in severity. Symptoms aggravated by nothing. Symptoms alleviated by nothing. Daughter reports agitation, and AMS. Patient denies melena, blood in the stools, and pain including hip pain. PMHx includes dementia and depression. - History Of Current Complaint Chief Complaint: EDAltMentalStatus Stated Complaint: FALL Time Seen by Provider: 07/22/17 15:33 Hx Obtained From: Patient, Family/Drum Handler - daughter Onset/Duration: Resolved Timing: Constant, Lasting Hours Severity Initially: Moderate Severity Currently: None Character: Confusion Aggravating Factor(s): Nothing Alleviating Factor(s): Nothing Associated Signs And Symptoms: Positive: Negative - Allergies/Home Medications Allergies/Adverse Reactions: Allergies Allergy/AdvReac Type Severity Reaction Status Date / Time No Known Allergies Allergy Verified 01/18/16 18:12 Home Medications: Home Medications Acetaminophen TAB* [Tylenol TAB*] 650 mg PO Q6H PRN 07/22/17 [History Confirmed 07/22/17] PMH/Surg Hx/FS Hx/Imm Hx Endocrine/Hematology History: Denies: Hx Anticoagulant Therapy, Hx Blood Disorders, Hx Blood Transfusions, Hx Bone Marrow Disease, Hx Diabetes, Hx Systemic Lupus Erythematosus, Hx Sickle Cell Disease, Hx Thyroid Disease, Hx Anemia, Hx Unexplained Bleeding, Other Endocrine/Hematological Disorders Cardiovascular History: Denies: Hx Hypertension, Hx Pacemaker/ICD Respiratory History: Denies: Hx Asthma, Hx Chronic Obstructive Pulmonary Disease (COPD) GI History: Reports: Hx Diverticulosis - Hx diverticulitis? Denies: Hx Gall Bladder Disease, Hx Gastroesophageal Reflux Disease, Hx Gastrointestinal Bleed, Hx Hiatal Hernia, Hx Irritable Bowel, Hx Jaundice, Hx Obstructive Bowel, Hx Ileostomy, Hx Pyloric Stenosis, Hx Ulcer, Other GI Disorders Musculoskeletal History: Reports: Hx Arthritis - Arthritis in both hands Sensory History: Denies: Hx Contacts or Glasses, Hx Hearing Aid Opthamlomology History: Denies: Hx Contacts or Glasses Neurological History: Reports: Hx Dementia, Other Neuro Impairments/Disorders - alzheimer's Denies: Hx Developmental Delay, Hx Headaches, Hx Migraine, Hx Nerve Disease, Hx Seizures, Hx Spinal Cord Injury, Hx Transient Ischemic Attacks (TIA) Psychiatric History: Reports: Hx Depression - dementia Denies: Hx Anxiety, Hx Attention Deficit Hyperactivity Disorder, Hx Eating Disorder, Hx Panic Disorder, Hx Post Traumatic Stress Disorder, Hx Inpatient Treatment, Hx Community Mental Health Tx, Hx Schizophrenia, Hx Bipolar Disorder , Hx Suicide Attempt, Hx of Violent Episodes Against Others, Hx Substance Abuse , Other Psychiatric Issues/Disorders - Surgical History Surgery Procedure, Year, and Place: Pt. reports having had surgery for diverticulitis, hysterectomy,appendectomy Infectious Disease History: No Infectious Disease History: Denies: Hx Clostridium Difficile, Hx Hepatitis, Hx Human Immunodeficiency Virus (HIV), Hx of Known/Suspected MRSA, Hx Shingles, Hx Tuberculosis, Hx Known/ Suspected VRE, Hx Known/Suspected VRSA, History Other Infectious Disease, Traveled Outside the in Last 30 Days - Family History Known Family History: Positive: Hypertension - Social History Occupation: Disabled Lives: Alone Alcohol Use: None Hx Substance Use: No Substance Use Type: Reports: None Hx Tobacco Use: Yes - smokes half a pack per day Smoking Status (MU): Former Smoker Type: Cigarettes Amount Used/How Often: 1 ppd Length of Time of Smoking/Using Tobacco: "At least 40 years." Have You Smoked in the Last Year: Yes Review of Systems Constitutional: Negative Eyes: Negative ENT: Negative Cardiovascular: Negative Respiratory: Negative Gastrointestinal: Negative Negative: Other - negative for melena Genitourinary: Negative Positive: Other - mechanical fall. Negative: Arthralgia - no hip pain Skin: Negative Neurological: Other - AMS Psychological: Normal All Other Systems Reviewed And Are Negative: Yes Physical Exam Triage Information Reviewed: Yes Vital Signs On Initial Exam: Initial Vitals Temp Pulse Resp BP Pulse Ox 99.6 F 95 14 89/58 94 07/22/17 14:40 07/22/17 14:40 07/22/17 14:40 07/22/17 14:40 07/22/17 14:40 Vital Signs Reviewed: Yes Completion Of Physical Exam Limited Due To: Dementia Appearance: Positive: Well-Appearing, No Pain Distress, Well-Nourished Skin: Positive: Warm, Skin Color Reflects Adequate Perfusion, Dry Head/Face: Positive: Normal Head/Face Inspection Eyes: Positive: EOMI, CHASITY ENT: Positive: Normal ENT inspection, Hearing grossly normal, Other - dry oral mucosa Neck: Positive: Supple, Nontender Respiratory/Lung Sounds: Positive: Clear to Auscultation, Breath Sounds Present Cardiovascular: Positive: RRR, Pulses are Symmetrical in both Upper and Lower Extremities, Murmur Abdomen Description: Positive: Nontender, Soft Bowel Sounds: Positive: Present Musculoskeletal: Positive: Strength/ROM Intact - Pt can move both hips without pain hips nt. Flesh over the right hip is more prominent than on the left hip, but not firm or tense to palpation.. Negative: Pain @ - Pt can move both hips without pain hips nt. Flesh over the right hip is more prominent than on the left hip, but not firm or tense to palpation., Edema Left, Edema Right Neurological: Positive: Sensory/Motor Intact, Other - pt is demented Psychiatric: Positive: Affect/Mood Appropriate Diagnostics - Vital Signs Vital Signs Temp Pulse Resp BP Pulse Ox 07/22/17 14:40 99.6 F 95 14 89/58 94 - Laboratory Lab Results: Lab Results 07/22/17 07/22/17 07/22/17 Range/Units 15:00 15:00 15:00 WBC 9.0 (3.5-10.8) 10^3/ul RBC 2.57 L (4.0-5.4) 10^6/ul Hgb 7.6 L (12.0-16.0) g/dl Hct 24 L (35-47) % MCV 92 (80-97) fL MCH 30 (27-31) pg MCHC 32 (31-36) g/dl RDW 15 (10.5-15) % Plt Count 833 H D (150-450) 10^3/ul MPV 6 L (7.4-10.4) um3 Neut % (Auto) 72.3 (38-83) % Lymph % (Auto) 16.1 L (25-47) % [place] % (Auto) 10.1 H (1-9) % Eos % (Auto) 0.8 (0-6) % Baso % (Auto) 0.7 (0-2) % Absolute Neuts (auto) 6.5 (1.5-7.7) 10^3/ul Absolute Lymphs (auto) 1.4 (1.0-4.8) 10^3/ul Absolute Monos (auto) 0.9 H (0-0.8) 10^3/ul Absolute Eos (auto) 0.1 (0-0.6) 10^3/ul Absolute Basos (auto) 0.1 (0-0.2) 10^3/ul Absolute Nucleated RBC 0 10^3/ul Nucleated RBC % 0 INR (Anticoag Therapy) 0.99 (0.89-1.11) APTT 30.7 (26.0-36.3) seconds Sodium 139 (133-145) mmol/L Potassium 3.0 L (3.5-5.0) mmol/L Chloride 101 (101-111) mmol/L Carbon Dioxide 32 (22-32) mmol/L Anion Gap 6 (2-11) mmol/L BUN 12 (6-24) mg/dL Creatinine 0.59 (0.51-0.95) mg/dL Est GFR ( Amer) 131.2 (>60) Est GFR (Non-Af Amer) 102.0 (>60) BUN/Creatinine Ratio 20.3 H (8-20) Glucose 115 H (70-100) mg/dL Lactic Acid (0.5-2.0) mmol/L Calcium 8.9 (8.6-10.3) mg/dL Magnesium 2.5 (1.9-2.7) mg/dL Total Bilirubin 0.50 (0.2-1.0) mg/dL AST 11 L (13-39) U/L ALT 4 L (7-52) U/L Alkaline Phosphatase 73 (34-104) U/L Total Creatine Kinase 42 (10-223) U/L CK-MB (CK-2) 0.9 (0.6-6.3) ng/mL Troponin I 0.00 (<0.04) ng/mL C-Reactive Protein 1.96 (< 5.00) mg/L B-Natriuretic Peptide ( - 100) pg/mL Total Protein 6.2 L (6.4-8.9) g/dL Albumin 3.4 (3.2-5.2) g/dL Globulin 2.8 (2-4) g/dL Albumin/Globulin Ratio 1.2 (1-3) TSH Pending 07/22/17 07/22/17 Range/Units 15:00 15:00 WBC (3.5-10.8) 10^3/ul RBC (4.0-5.4) 10^6/ul Hgb (12.0-16.0) g/dl Hct (35-47) % MCV (80-97) fL MCH (27-31) pg MCHC (31-36) g/dl RDW (10.5-15) % Plt Count (150-450) 10^3/ul MPV (7.4-10.4) um3 Neut % (Auto) (38-83) % Lymph % (Auto) (25-47) % Potter % (Auto) (1-9) % Eos % (Auto) (0-6) % Baso % (Auto) (0-2) % Absolute Neuts (auto) (1.5-7.7) 10^3/ul Absolute Lymphs (auto) (1.0-4.8) 10^3/ul Absolute Monos (auto) (0-0.8) 10^3/ul Absolute Eos (auto) (0-0.6) 10^3/ul Absolute Basos (auto) (0-0.2) 10^3/ul Absolute Nucleated RBC 10^3/ul Nucleated RBC % INR (Anticoag Therapy) (0.89-1.11) APTT (26.0-36.3) seconds Sodium (133-145) mmol/L Potassium (3.5-5.0) mmol/L Chloride (101-111) mmol/L Carbon Dioxide (22-32) mmol/L Anion Gap (2-11) mmol/L BUN (6-24) mg/dL Creatinine (0.51-0.95) mg/dL Est GFR ( Amer) (>60) Est GFR (Non-Af Amer) (>60) BUN/Creatinine Ratio (8-20) Glucose (70-100) mg/dL Lactic Acid 0.9 (0.5-2.0) mmol/L Calcium (8.6-10.3) mg/dL Magnesium (1.9-2.7) mg/dL Total Bilirubin (0.2-1.0) mg/dL AST (13-39) U/L ALT (7-52) U/L Alkaline Phosphatase (34-104) U/L Total Creatine Kinase (10-223) U/L CK-MB (CK-2) (0.6-6.3) ng/mL Troponin I (<0.04) ng/mL C-Reactive Protein (< 5.00) mg/L B-Natriuretic Peptide 21 ( - 100) pg/mL Total Protein (6.4-8.9) g/dL Albumin (3.2-5.2) g/dL Globulin (2-4) g/dL Albumin/Globulin Ratio (1-3) TSH Result Diagrams: 07/22/17 15:00 07/22/17 15:00 Lab Statement: Any lab studies that have been ordered have been reviewed, and results considered in the medical decision making process. - Radiology CXR Xray Interpretation: No Acute Changes Radiology Interpretation Completed By: Radiologist - ED physician has reviewed this radiology report and agrees. - CT Brain CT WO CT Interpretation: No Acute Changes - No intracranial mass or hemorrhage is noted. Limited study by motion artifact. ED physician has reviewed this radiology report and agrees. CT Interpretation Completed By: Radiologist CT C-Spine WO CT Interpretation: No Acute Changes - 1. NO EVIDENCE FOR ACUTE FRACTURE OR SUBLUXATION. 2. MILD COMPRESSION FRACTURE OF THE SUPERIOR ENDPLATE OF THE T4 VERTEBRAL BODY LIKELY SUBACUTE TO CHRONIC IN DURATION. 3. MILD CERVICAL SPONDYLOSIS. ED physician has reviewed this radiology report and agrees. CT Interpretation Completed By: Radiologist Altered Mental Statu Course/Dx - Course Course Of Treatment: Reviewed pts medication and allergy lists. Blood pressure noted. NO OBVIOUS SOURCE FOR ANEMIA OTHER THAN RT HIP SURGERY. ROCEPHIN IV FOR UTI. ADMIT HOSPITALIST. NO CRITICAL CARE TIME. - Diagnoses Discharge Diagnoses: Fall, UTI (urinary tract infection), Anemia, Altered mental state Discharge - Discharge Plan Condition: Stable Disposition: ADMITTED TO [facility], [Primary Care Provider] - The documentation as recorded by the Claudio george Benjamin accurately reflects the service I personally performed and the decisions made by me, Nemesio Stewart MD.
[2017-07-22] MEDS ORDERED: NS 0.9% 1000 ML* 1,000 ML IV SCH (18:00)
[2017-07-22] MEDS ORDERED: LORazepam INJ* 2 MG/ML 1 ML VIAL IV ONE (19:10)
[2017-07-22] MEDS ORDERED: Senna TAB PO PRN (19:37)
[2017-07-22] MEDS: Venlafaxine EXT RELEASE CAP* 75 MG PO SCH (22:03)
[2017-07-22] MEDS: Acetaminophen TAB* 325 MG PO PRN (22:03)
[2017-07-22 22:30] LABS: Hematocrit 23 % (35-47); Hemoglobin 7.4 g/dl (12.0-16.0)
--- NOTE | 2017-07-22 22:59 | HP ---
H&P (Free Text) History and Physical: PCP: Tony Hinton Date/Time of Evaluation: 07/22/2017 193 CC: confusion HPI: Mrs Olguin is a 67YO female recently admitted to [facility] 07/10 - 07/13/2017 for R hip FX 2nd mechanical fall s/p MARK. She is a [facility] resident due to advanced dementia. Her granddaughter who works for [facility] is present and gives this history. She has had gradually worsening appetite and activity associated with increasing confusion since returning. Participation in physical therapy has been variable. There is report of a fever, but it is uncertain how high. There has been no report of pain, cough, congestion, or changes in bowel/ bladder. While in the ED, she apparently awoke enough to become agitated and was given 0.5mg IV lorazepam resulting in her becoming hyporesponsive and somnolent. PMedHx dementia depression w/ suicidality diverticulosis/diverticulitis chronic pain syndrome Ambulatory Orders Venlafaxine EXT RELEASE CAP* [Effexor Xr CAP*] 75 mg PO BID 03/19/16 Cholecalciferol [Vitamin D3] 50,000 unit PO MONTHLY 07/10/17 Magnesium Hydroxide LIQ* [Milk of Magnesia LIQ*] 30 ml PO DAILY PRN 07/10/17 Mirtazapine TAB* [Remeron TAB*] 15 mg PO BEDTIME PRN 07/10/17 Senna TAB* [Senokot TAB*] 2 tab PO BID PRN 07/10/17 oxyCODONE TAB* [Roxycodone TAB 5 mg*] 5 mg PO Q12H PRN 07/10/17 risperiDONE TAB* [Risperdal*] 0.5 mg PO QAM 07/10/17 risperiDONE TAB* [Risperdal*] 1 mg PO DAILY@1400 07/10/17 Enoxaparin(*) [Lovenox(*)] 30 mg SUBCUT 1200 30 Days 07/13/17 Acetaminophen TAB* [Tylenol TAB*] 650 mg PO Q6H PRN 07/22/17 Allergies No Known Allergies Allergy (Verified 01/18/16 18:12) PSurgHx partial colectomy appendectomy hysterectomy SocHx: former smoker, no alcohol or recreational drugs; lives at [facility]; DNR code status FamHx: positive for dementia ROS: as above, otherwise reviewed and all were negative Constitutional: NAD, normally developed, thin white female appearing older than her reported age vitals: Vital Signs Temp 36.9 C 07/22/17 20:30 Pulse 94 07/22/17 20:30 Resp 16 07/22/17 20:30 BP 122/64 07/22/17 20:30 Pulse Ox 94 07/22/17 20:30 Intake & Output 07/21/17 07/22/17 07/22/17 23:59 11:59 23:59 Intake Total 50 Balance 50 Weight 43.545 kg Intake: IV Fluids 50 Oral 0 Other: # Bowel Movements 0 # Voids 0 HEENM: atraumatic; sclera/conjunctiva: non-icteric/clear; hearing: unable to assess; oropharynx: clear, mucosa tacky Neck: soft tissue: no nuchal rigidity; thyroid: normal Pulmonary: clear to auscultation bilaterally, good aeration, no accessory muscle use CV: RR/RR, normal S1S2, no carotid bruit, no jugular venous distention, 2+ B DP/ PT, no edema Abdominal: soft, non-distended, non-tender, no rebound/guarding/rigidity, normoactive bowel sounds, no hepatosplenomegaly or masses, no costovertebral angle tenderness Musculoskeletal: general: grossly intact, no overt deformity or palpable pain Integumental: R hip incision healing well Psychiatric orientation: somnolent, AA&O to PP, not TS affect: somnolent mood: acquiescent eye contact: poor content: unreliable responses: slowed, if responds insight: poor Testing: Lab Results 07/22/17 07/22/17 07/22/17 Range/Units 15:00 15:00 15:00 WBC 9.0 (3.5-10.8) 10^3/ul RBC 2.57 L (4.0-5.4) 10^6/ul Hgb 7.6 L (12.0-16.0) g/dl Hct 24 L (35-47) % MCV 92 (80-97) fL MCH 30 (27-31) pg MCHC 32 (31-36) g/dl RDW 15 (10.5-15) % Plt Count 833 H D (150-450) 10^3/ul MPV 6 L (7.4-10.4) um3 Neut % (Auto) 72.3 (38-83) % Lymph % (Auto) 16.1 L (25-47) % [place] % (Auto) 10.1 H (1-9) % Eos % (Auto) 0.8 (0-6) % Baso % (Auto) 0.7 (0-2) % Absolute Neuts (auto) 6.5 (1.5-7.7) 10^3/ul Absolute Lymphs (auto) 1.4 (1.0-4.8) 10^3/ul Absolute Monos (auto) 0.9 H (0-0.8) 10^3/ul Absolute Eos (auto) 0.1 (0-0.6) 10^3/ul Absolute Basos (auto) 0.1 (0-0.2) 10^3/ul Absolute Nucleated RBC 0 10^3/ul Nucleated RBC % 0 INR (Anticoag Therapy) 0.99 (0.89-1.11) APTT 30.7 (26.0-36.3) seconds Sodium 139 (133-145) mmol/L Potassium 3.0 L (3.5-5.0) mmol/L Chloride 101 (101-111) mmol/L Carbon Dioxide 32 (22-32) mmol/L Anion Gap 6 (2-11) mmol/L BUN 12 (6-24) mg/dL Creatinine 0.59 (0.51-0.95) mg/dL Est GFR ( Amer) 131.2 (>60) Est GFR (Non-Af Amer) 102.0 (>60) BUN/Creatinine Ratio 20.3 H (8-20) Glucose 115 H (70-100) mg/dL Lactic Acid (0.5-2.0) mmol/L Calcium 8.9 (8.6-10.3) mg/dL Magnesium 2.5 (1.9-2.7) mg/dL Total Bilirubin 0.50 (0.2-1.0) mg/dL AST 11 L (13-39) U/L ALT 4 L (7-52) U/L Alkaline Phosphatase 73 (34-104) U/L Total Creatine Kinase 42 (10-223) U/L CK-MB (CK-2) 0.9 (0.6-6.3) ng/mL Troponin I 0.00 (<0.04) ng/mL C-Reactive Protein 1.96 (< 5.00) mg/L B-Natriuretic Peptide ( - 100) pg/mL Total Protein 6.2 L (6.4-8.9) g/dL Albumin 3.4 (3.2-5.2) g/dL Globulin 2.8 (2-4) g/dL Albumin/Globulin Ratio 1.2 (1-3) TSH 2.29 (0.34-5.60) mcIU/mL Urine Color Urine Appearance Urine pH (5-9) Ur Specific [place] (1.010-1.030) Urine Protein (Negative) Urine Ketones (Negative) Urine Blood (Negative) Urine Nitrate (Negative) Urine Bilirubin (Negative) Urine Urobilinogen (Negative) Ur Leukocyte Esterase (Negative) Urine WBC (Auto) (Absent) Urine RBC (Auto) (Absent) Urine Bacteria (Absent) Urine Glucose (Negative) 07/22/17 07/22/17 07/22/17 Range/Units 15:00 15:00 17:10 WBC (3.5-10.8) 10^3/ul RBC (4.0-5.4) 10^6/ul Hgb (12.0-16.0) g/dl Hct (35-47) % MCV (80-97) fL MCH (27-31) pg MCHC (31-36) g/dl RDW (10.5-15) % Plt Count (150-450) 10^3/ul MPV (7.4-10.4) um3 Neut % (Auto) (38-83) % Lymph % (Auto) (25-47) % [place] % (Auto) (1-9) % Eos % (Auto) (0-6) % Baso % (Auto) (0-2) % Absolute Neuts (auto) (1.5-7.7) 10^3/ul Absolute Lymphs (auto) (1.0-4.8) 10^3/ul Absolute Monos (auto) (0-0.8) 10^3/ul Absolute Eos (auto) (0-0.6) 10^3/ul Absolute Basos (auto) (0-0.2) 10^3/ul Absolute Nucleated RBC 10^3/ul Nucleated RBC % INR (Anticoag Therapy) (0.89-1.11) APTT (26.0-36.3) seconds Sodium (133-145) mmol/L Potassium (3.5-5.0) mmol/L Chloride (101-111) mmol/L Carbon Dioxide (22-32) mmol/L Anion Gap (2-11) mmol/L BUN (6-24) mg/dL Creatinine (0.51-0.95) mg/dL Est GFR ( Amer) (>60) Est GFR (Non-Af Amer) (>60) BUN/Creatinine Ratio (8-20) Glucose (70-100) mg/dL Lactic Acid 0.9 (0.5-2.0) mmol/L Calcium (8.6-10.3) mg/dL Magnesium (1.9-2.7) mg/dL Total Bilirubin (0.2-1.0) mg/dL AST (13-39) U/L ALT (7-52) U/L Alkaline Phosphatase (34-104) U/L Total Creatine Kinase (10-223) U/L CK-MB (CK-2) (0.6-6.3) ng/mL Troponin I (<0.04) ng/mL C-Reactive Protein (< 5.00) mg/L B-Natriuretic Peptide 21 ( - 100) pg/mL Total Protein (6.4-8.9) g/dL Albumin (3.2-5.2) g/dL Globulin (2-4) g/dL Albumin/Globulin Ratio (1-3) TSH (0.34-5.60) mcIU/mL Urine Color Yellow Urine Appearance Cloudy Urine pH 7.0 (5-9) Ur Specific [place] 1.012 (1.010-1.030) Urine Protein 1+(30 mg/dl) H (Negative) Urine Ketones Negative (Negative) Urine Blood 1+ H (Negative) Urine Nitrate Negative (Negative) Urine Bilirubin Negative (Negative) Urine Urobilinogen Negative (Negative) Ur Leukocyte Esterase 3+ H (Negative) Urine WBC (Auto) 3+(>20/hpf) H (Absent) Urine RBC (Auto) 3+(>10/hpf) H (Absent) Urine Bacteria Absent (Absent) Urine Glucose Negative (Negative) 07/22/17 Range/Units 22:15 WBC (3.5-10.8) 10^3/ul RBC (4.0-5.4) 10^6/ul Hgb 7.4 L (12.0-16.0) g/dl Hct 23 L (35-47) % MCV (80-97) fL MCH (27-31) pg MCHC (31-36) g/dl RDW (10.5-15) % Plt Count (150-450) 10^3/ul MPV (7.4-10.4) um3 Neut % (Auto) (38-83) % Lymph % (Auto) (25-47) % [place] % (Auto) (1-9) % Eos % (Auto) (0-6) % Baso % (Auto) (0-2) % Absolute Neuts (auto) (1.5-7.7) 10^3/ul Absolute Lymphs (auto) (1.0-4.8) 10^3/ul Absolute Monos (auto) (0-0.8) 10^3/ul Absolute Eos (auto) (0-0.6) 10^3/ul Absolute Basos (auto) (0-0.2) 10^3/ul Absolute Nucleated RBC 10^3/ul Nucleated RBC % INR (Anticoag Therapy) (0.89-1.11) APTT (26.0-36.3) seconds Sodium (133-145) mmol/L Potassium (3.5-5.0) mmol/L Chloride (101-111) mmol/L Carbon Dioxide (22-32) mmol/L Anion Gap (2-11) mmol/L BUN (6-24) mg/dL Creatinine (0.51-0.95) mg/dL Est GFR ( Amer) (>60) Est GFR (Non-Af Amer) (>60) BUN/Creatinine Ratio (8-20) Glucose (70-100) mg/dL Lactic Acid (0.5-2.0) mmol/L Calcium (8.6-10.3) mg/dL Magnesium (1.9-2.7) mg/dL Total Bilirubin (0.2-1.0) mg/dL AST (13-39) U/L ALT (7-52) U/L Alkaline Phosphatase (34-104) U/L Total Creatine Kinase (10-223) U/L CK-MB (CK-2) (0.6-6.3) ng/mL Troponin I (<0.04) ng/mL C-Reactive Protein (< 5.00) mg/L B-Natriuretic Peptide ( - 100) pg/mL Total Protein (6.4-8.9) g/dL Albumin (3.2-5.2) g/dL Globulin (2-4) g/dL Albumin/Globulin Ratio (1-3) TSH (0.34-5.60) mcIU/mL Urine Color Urine Appearance Urine pH (5-9) Ur Specific [place] (1.010-1.030) Urine Protein (Negative) Urine Ketones (Negative) Urine Blood (Negative) Urine Nitrate (Negative) Urine Bilirubin (Negative) Urine Urobilinogen (Negative) Ur Leukocyte Esterase (Negative) Urine WBC (Auto) (Absent) Urine RBC (Auto) (Absent) Urine Bacteria (Absent) Urine Glucose (Negative) CXR, personally reviewed: IMPRESSION: NO ACTIVE CARDIOPULMONARY DISEASE IS NOTED. CT brain WO, personally reviewed: IMPRESSION: No intracranial mass or hemorrhage is noted. Limited study by motion artifact. CT C-spine WO: IMPRESSION: 1. NO EVIDENCE FOR ACUTE FRACTURE OR SUBLUXATION. 2. MILD COMPRESSION FRACTURE OF THE SUPERIOR ENDPLATE OF THE T4 VERTEBRAL BODY LIKELY SUBACUTE TO CHRONIC IN DURATION. 3. MILD CERVICAL SPONDYLOSIS. Impression: 67F presenting with confusion & poor PO intake s/p recent R MARK DIAGNOSIS & PLAN Primary confusion; dDx: dehydration vs UTI vs other : IV ceftriaxone : urine & blood CXs : IVFs : supportive care Secondary dementia : review meds once reconciled depression w/ suicidality : review meds once reconciled chronic pain syndrome : review meds once reconciled Admission Rational: observation for confusion DVTp: enoxaparin SQ Code Status: DNR HCP: daughter
[2017-07-22] MEDS: NS 0.9% 1000 ML* 1,000 ML IV SCH (23:44)
[2017-07-23 03:11] LABS: Hematocrit 20 % (35-47); Hemoglobin 6.8 g/dl (12.0-16.0); Mean Corpuscular HGB Conc 34 g/dl (31-36); Mean Corpuscular Hemoglobin 31 pg (27-31); Mean Corpuscular Volume 91 fL (80-97); Mean Platelet Volume 6 um3 (7.4-10.4); Red Cell Distribution Width 15 % (10.5-15); White Blood Count 7.4 10^3/ul (3.5-10.8)
[2017-07-23 03:16] LABS: Comments Flag Yes
[2017-07-23 03:26] LABS: Anion Gap 3 mmol/L (2-11); BUN/Creatinine Ratio 15.6 (8-20); Blood Urea Nitrogen 7 mg/dL (6-24); CO2 Carbon Dioxide 29 mmol/L (22-32); Calcium 8.4 mg/dL (8.6-10.3); Chloride 107 mmol/L (101-111); EGFR African American 179.3 (>60); EGFR Non-African American 139.4 (>60); Glucose 103 mg/dL (70-100); Potassium 2.9 mmol/L (3.5-5.0); Sodium 139 mmol/L (133-145)
[2017-07-23 08:10] LABS: Magnesium 2.3 mg/dL (1.9-2.7)
[2017-07-23] MEDS: KCL 10 MEQ/50 ML IVPREMIX* 10 MEQ/50 ML BAG IV SCH ×3 (08:16→11:06)
[2017-07-23] MEDS: Venlafaxine EXT RELEASE CAP* 75 MG PO SCH ×3 (08:30→20:48)
[2017-07-23] MEDS ORDERED: Influenza VAC *QUAD* 2017-18* 0.5 ML SYRINGE IM ONE (09:00)
[2017-07-23] MEDS: NS 0.9% 1000 ML* 1,000 ML IV SCH ×2 (10:22→20:44)
[2017-07-23 11:44] LABS: Iron 20 ug/dL (50-212); Total Iron Binding Capacity 287 mcg/dL (250-450); Transferrin 205 mg/dL (203-362)
[2017-07-23] MEDS: Enoxaparin(*) 30 MG/0.3 ML SYR SUBCUT SCH (11:52)
[2017-07-23 12:06] LABS: Ferritin 49.5 ng/mL (11-307)
[2017-07-23 12:09] LABS: Folate > 20.00 ng/mL (>3.99)
[2017-07-23 12:10] LABS: Vitamin B12 265 pg/mL (180-914)
[2017-07-23] MEDS: risperiDONE TAB* 1 MG PO SCH (13:32)
--- NOTE | 2017-07-23 15:18 | PN ---
Subjective Date of Service: 07/23/17 Interval History: HOSPITALIST PROGRESS NOTE Patient seen and examined at bedside. Confused at baseline, offers no complaints. Family History: Unchanged from Admission Social History: Unchanged from Admission Past Medical History: Unchanged from Admission Objective Active Medications: Acetaminophen (Tylenol Tab*) 650 mg PO Q6H PRN PRN Reason: FEVER/PAIN Last Admin: 07/22/17 22:03 Dose: 650 mg Enoxaparin Sodium (Lovenox(*)) 30 mg SUBCUT 1200 [facility] Last Admin: 07/23/17 11:52 Dose: 30 mg Ceftriaxone Sodium 1,000 mg/ (Sodium Chloride) 50 mls @ 200 mls/hr IVPB Q24H [facility] Sodium Chloride (Ns 0.9% 1000 Ml*) 1,000 mls @ 100 mls/hr IV PER RATE [facility] Last Admin: 07/23/17 10:22 Dose: 100 mls/hr Risperidone (Risperdal) 0.5 mg PO QAM [facility] Last Admin: 07/23/17 08:34 Dose: 0.5 mg Risperidone (Risperdal*) 1 mg PO DAILY@1400 [facility] Last Admin: 07/23/17 13:32 Dose: 1 mg Senna (Senokot Tab*) 2 tab PO BID PRN PRN Reason: CONSTIPATION Venlafaxine HCl (Effexor Xr Cap*) 75 mg PO BID [facility] Last Admin: 07/23/17 08:30 Dose: 75 mg Vital Signs 07/23/17 07/23/17 07/23/17 00:10 04:21 07:21 Temperature 98.6 F 97.9 F 99.9 F Pulse Rate 79 85 85 Respiratory 16 16 16 Rate Blood Pressure 106/61 122/55 112/57 (mmHg) O2 Sat by Pulse 94 96 95 Oximetry Oxygen Devices in Use Now: None Appearance: Elderly lady lying in bed in [facility]. Eyes: No Scleral Icterus Ears/Nose/Mouth/Throat: Mucous Membranes Moist Neck: Trachea Midline Respiratory: Symmetrical Chest Expansion and Respiratory Effort, Clear to Auscultation Cardiovascular: RRR - Normal S1 and S2 Abdominal: NL Sounds; No Tenderness; No Distention Extremities: - - Well healed right hip incision Neurological: - - Alert and awake, not oriented even to self, DAWN Lines/Tubes/Other Access: Clean, Dry and Intact Peripheral IV Nutrition: Taking PO's Result Diagrams: 07/23/17 03:04 07/23/17 03:04 Assess/Plan/Problems-Billing Assessment: Mrs. Davila is a 67yo F with PMH of advanced dementia, depression, chronic pain, recent admission for right hip fracture s/p arthroplasty, who presented to ED from [facility] with worsening confusion and anorexia, found to have an UTI. - Patient Problems (1) UTI (urinary tract infection) Comment: - Present on admission. - Urine culture growing E. coli, sensitivity pending. - Continue Ceftriaxone and IVF. (2) Anemia Comment: - Likely iron deficiency associated with losses from her prior surgery , especially considering her thrombocytosis. - Check anemia w/u. - Stool guaiac was negative. (3) Depression Comment: - Continue Remeron and Effexor. (4) Dementia Comment: - Continue Risperidone. (5) DVT prophylaxis Comment: - Lovenox. (6) DNR (do not resuscitate) Status and Disposition: Change to inpatient for management of UTI and anemia requiring >48h for stabilization.
[2017-07-23] MEDS ORDERED: Mirtazapine TAB* 15 MG PO PRN (15:37)
[2017-07-23] MEDS: cefTRIAXone VIAL(*) 1,000 MG in NS 0.9% 50 ML* 50 ML IVPB SCH (18:03)
[2017-07-24 05:11] LABS: Hematocrit 30 % (35-47); Hemoglobin 10.2 g/dl (12.0-16.0); Mean Corpuscular HGB Conc 34 g/dl (31-36); Mean Corpuscular Hemoglobin 29 pg (27-31); Mean Corpuscular Volume 88 fL (80-97); Mean Platelet Volume 6 um3 (7.4-10.4); Red Blood Count 3.47 10^6/ul (4.0-5.4); Red Cell Distribution Width 15 % (10.5-15); White Blood Count 11.2 10^3/ul (3.5-10.8)
[2017-07-24 05:27] LABS: BUN/Creatinine Ratio 9.7 (8-20); Calcium 8.5 mg/dL (8.6-10.3); EGFR African American 275.6 (>60); EGFR Non-African American 214.3 (>60)
[2017-07-24 05:34] LABS: Potassium 2.7 mmol/L (3.5-5.0)
[2017-07-24] MEDS: Venlafaxine EXT RELEASE CAP* 75 MG PO SCH ×2 (09:21→23:25)
[2017-07-24] MEDS: NS 0.9% 1000 ML* 1,000 ML IV SCH ×2 (10:04→18:48)
[2017-07-24] MEDS: Enoxaparin(*) 30 MG/0.3 ML SYR SUBCUT SCH (11:40)
[2017-07-24] MEDS ORDERED: LORazepam TAB(*) 0.5 MG PO PRN (11:50)
[2017-07-24] MEDS ORDERED: NS 0.9% 250 ML* 0 ML ONE (11:59)
[2017-07-24] MEDS ORDERED: Potassium Phosphate IV* 30 MMOLE in NS 0.9% 250 ML* 250 ML IVPB ONE (12:30)
[2017-07-24] MEDS ORDERED: Haloperidol INJ IV/IM* 5 MG/ML AMP IM PRN (12:53)
--- NOTE | 2017-07-24 13:25 | PN ---
Subjective Date of Service: 07/24/17 Interval History: Seen with her daughter at bedside. Ms. Davila is yelling and trying to get out of bed. She is redirectable by her daughter. Review of systems is unable to be obtained due to dementia and delirium. Family History: Unchanged from Admission Social History: Unchanged from Admission Past Medical History: Unchanged from Admission Objective Active Medications: Acetaminophen (Tylenol Tab*) 650 mg PO Q6H PRN PRN Reason: FEVER/PAIN Last Admin: 07/22/17 22:03 Dose: 650 mg Enoxaparin Sodium (Lovenox(*)) 30 mg SUBCUT 1200 [facility] Last Admin: 07/24/17 11:40 Dose: 30 mg Haloperidol Lactate (Haldol Inj Iv/Im*) 1 mg IM Q6H PRN PRN Reason: AGITATION Ceftriaxone Sodium 1,000 mg/ (Sodium Chloride) 50 mls @ 200 mls/hr IVPB Q24H [facility] Last Admin: 07/23/17 18:03 Dose: 200 mls/hr Sodium Chloride (Ns 0.9% 1000 Ml*) 1,000 mls @ 100 mls/hr IV PER RATE [facility] Last Admin: 07/24/17 10:04 Dose: 100 mls/hr Potassium Phosphate 30 mmole/ (Sodium Chloride) 260 mls @ 42 mls/hr IVPB ONCE ONE Stop: 07/24/17 18:41 Last Admin: 07/24/17 12:29 Dose: 42 mls/hr Lorazepam (Ativan Tab(*)) 0.5 mg PO Q4H PRN PRN Reason: ANXIETY Last Admin: 07/24/17 12:05 Dose: 0.5 mg Mirtazapine (Remeron Tab*) 15 mg PO BEDTIME PRN PRN Reason: INSOMNIA Risperidone (Risperdal) 0.5 mg PO QAM [facility] Last Admin: 07/24/17 09:21 Dose: 0.5 mg Risperidone (Risperdal*) 1 mg PO DAILY@1400 [facility] Last Admin: 07/23/17 13:32 Dose: 1 mg Senna (Senokot Tab*) 2 tab PO BID PRN PRN Reason: CONSTIPATION Venlafaxine HCl (Effexor Xr Cap*) 75 mg PO BID [facility] Last Admin: 07/24/17 09:21 Dose: 75 mg Vital Signs 07/23/17 07/23/17 07/23/17 19:52 20:00 23:22 Temperature 99.5 F 98.5 F Pulse Rate 99 86 Respiratory 20 18 20 Rate Blood Pressure 125/76 132/80 (mmHg) O2 Sat by Pulse 97 96 Oximetry 07/24/17 07/24/17 07/24/17 04:29 07:38 08:00 Temperature 97.7 F 99.0 F Pulse Rate 87 87 Respiratory 20 16 18 Rate Blood Pressure 100/65 115/64 (mmHg) O2 Sat by Pulse 97 97 Oximetry 07/24/17 07/24/17 11:36 12:05 Temperature 99.5 F Pulse Rate 97 Respiratory 16 18 Rate Blood Pressure 141/92 (mmHg) O2 Sat by Pulse 97 Oximetry Oxygen Devices in Use Now: None Appearance: alert, oriented x 0, becomes agitated by questioning Eyes: No Scleral Icterus, PERRLA Ears/Nose/Mouth/Throat: NL Teeth, Lips, Gums, - - poor dentitia Neck: NL Appearance and Movements; NL JVP Respiratory: Symmetrical Chest Expansion and Respiratory Effort, Clear to Auscultation Cardiovascular: NL Sounds; No Murmurs; No JVD, RRR Abdominal: NL Sounds; No Tenderness; No Distention, No Hepatosplenomegaly Lymphatic: No Cervical Adenopathy Extremities: No Edema Skin: No Rash or Ulcers Result Diagrams: 07/24/17 04:44 07/24/17 04:44 Additional Lab and Data: Lab Results 07/22/17 07/22/17 07/22/17 Range/Units 15:00 15:00 15:00 WBC 9.0 (3.5-10.8) 10^3/ul RBC 2.57 L (4.0-5.4) 10^6/ul Hgb 7.6 L (12.0-16.0) g/dl Hct 24 L (35-47) % MCV 92 (80-97) fL MCH 30 (27-31) pg MCHC 32 (31-36) g/dl RDW 15 (10.5-15) % Plt Count 833 H D (150-450) 10^3/ul MPV 6 L (7.4-10.4) um3 Neut % (Auto) 72.3 (38-83) % Lymph % (Auto) 16.1 L (25-47) % Price % (Auto) 10.1 H (1-9) % Eos % (Auto) 0.8 (0-6) % Baso % (Auto) 0.7 (0-2) % Absolute Neuts (auto) 6.5 (1.5-7.7) 10^3/ul Absolute Lymphs (auto) 1.4 (1.0-4.8) 10^3/ul Absolute Monos (auto) 0.9 H (0-0.8) 10^3/ul Absolute Eos (auto) 0.1 (0-0.6) 10^3/ul Absolute Basos (auto) 0.1 (0-0.2) 10^3/ul Absolute Nucleated RBC 0 10^3/ul Nucleated RBC % 0 INR (Anticoag Therapy) 0.99 (0.89-1.11) APTT 30.7 (26.0-36.3) seconds Sodium 139 (133-145) mmol/L Potassium 3.0 L (3.5-5.0) mmol/L Chloride 101 (101-111) mmol/L Carbon Dioxide 32 (22-32) mmol/L Anion Gap 6 (2-11) mmol/L BUN 12 (6-24) mg/dL Creatinine 0.59 (0.51-0.95) mg/dL Est GFR ( Amer) 131.2 (>60) Est GFR (Non-Af Amer) 102.0 (>60) BUN/Creatinine Ratio 20.3 H (8-20) Glucose 115 H (70-100) mg/dL Lactic Acid (0.5-2.0) mmol/L Calcium 8.9 (8.6-10.3) mg/dL Magnesium 2.5 (1.9-2.7) mg/dL Total Bilirubin 0.50 (0.2-1.0) mg/dL AST 11 L (13-39) U/L ALT 4 L (7-52) U/L Alkaline Phosphatase 73 (34-104) U/L Total Creatine Kinase 42 (10-223) U/L CK-MB (CK-2) 0.9 (0.6-6.3) ng/mL Troponin I 0.00 (<0.04) ng/mL C-Reactive Protein 1.96 (< 5.00) mg/L B-Natriuretic Peptide ( - 100) pg/mL Total Protein 6.2 L (6.4-8.9) g/dL Albumin 3.4 (3.2-5.2) g/dL Globulin 2.8 (2-4) g/dL Albumin/Globulin Ratio 1.2 (1-3) TSH Pending 07/22/17 07/22/17 Range/Units 15:00 15:00 WBC (3.5-10.8) 10^3/ul RBC (4.0-5.4) 10^6/ul Hgb (12.0-16.0) g/dl Hct (35-47) % MCV (80-97) fL MCH (27-31) pg MCHC (31-36) g/dl RDW (10.5-15) % Plt Count (150-450) 10^3/ul MPV (7.4-10.4) um3 Neut % (Auto) (38-83) % Lymph % (Auto) (25-47) % Price % (Auto) (1-9) % Eos % (Auto) (0-6) % Baso % (Auto) (0-2) % Absolute Neuts (auto) (1.5-7.7) 10^3/ul Absolute Lymphs (auto) (1.0-4.8) 10^3/ul Absolute Monos (auto) (0-0.8) 10^3/ul Absolute Eos (auto) (0-0.6) 10^3/ul Absolute Basos (auto) (0-0.2) 10^3/ul Absolute Nucleated RBC 10^3/ul Nucleated RBC % INR (Anticoag Therapy) (0.89-1.11) APTT (26.0-36.3) seconds Sodium (133-145) mmol/L Potassium (3.5-5.0) mmol/L Chloride (101-111) mmol/L Carbon Dioxide (22-32) mmol/L Anion Gap (2-11) mmol/L BUN (6-24) mg/dL Creatinine (0.51-0.95) mg/dL Est GFR ( Amer) (>60) Est GFR (Non-Af Amer) (>60) BUN/Creatinine Ratio (8-20) Glucose (70-100) mg/dL Lactic Acid 0.9 (0.5-2.0) mmol/L Calcium (8.6-10.3) mg/dL Magnesium (1.9-2.7) mg/dL Total Bilirubin (0.2-1.0) mg/dL AST (13-39) U/L ALT (7-52) U/L Alkaline Phosphatase (34-104) U/L Total Creatine Kinase (10-223) U/L CK-MB (CK-2) (0.6-6.3) ng/mL Troponin I (<0.04) ng/mL C-Reactive Protein (< 5.00) mg/L B-Natriuretic Peptide 21 ( - 100) pg/mL Total Protein (6.4-8.9) g/dL Albumin (3.2-5.2) g/dL Globulin (2-4) g/dL Albumin/Globulin Ratio (1-3) TSH Assess/Plan/Problems-Billing Assessment: Mrs. Davila is a 67yo F with PMH of advanced dementia, depression, chronic pain, recent admission for right hip fracture s/p arthroplasty, who presented to ED from [facility] with worsening confusion and anorexia, found to have an UTI. 1. Complicated UTI Culture showing sue-sensitive E. coli; Ceftriaxone Day 2. 2. Acute delirium likely secondary to #1. Continue behavioral redirection; add haldol prn today. 3. Advanced dementia not on any dementia medications. 4. Hypokalemia likely due to poor PO intake; replete now 5. Normocytic Anemia stable; no bleeding. Iron studies consistent with iron deficiency. Replete with po iron. Status and Disposition: Change to inpatient for management of UTI and anemia requiring >48h for stabilization.
[2017-07-24] MEDS: risperiDONE TAB* 1 MG PO SCH (13:46)
[2017-07-24] MEDS: Acetaminophen TAB* 325 MG PO PRN (15:59)
[2017-07-24] MEDS: cefTRIAXone VIAL(*) 1,000 MG in NS 0.9% 50 ML* 50 ML IVPB SCH (17:33)
[2017-07-24] MEDS: CMCS Venlafaxine TAB (NF) 25 MG TAB PO SCH (23:23)
[2017-07-24] MEDS ORDERED: NS 0.9% 1000 ML* 1,000 ML IV ONE (23:45)
[2017-07-25] MEDS: NS 0.9% 1000 ML* 1,000 ML IV SCH (04:54)
[2017-07-25 07:17] LABS: Hematocrit 30 % (35-47); Hemoglobin 9.7 g/dl (12.0-16.0); Mean Corpuscular HGB Conc 33 g/dl (31-36); Mean Corpuscular Hemoglobin 29 pg (27-31); Mean Corpuscular Volume 89 fL (80-97); Mean Platelet Volume 6 um3 (7.4-10.4); Red Blood Count 3.35 10^6/ul (4.0-5.4); Red Cell Distribution Width 15 % (10.5-15); White Blood Count 7.6 10^3/ul (3.5-10.8)
[2017-07-25 07:51] LABS: BUN/Creatinine Ratio 11.6 (8-20); Calcium 8.1 mg/dL (8.6-10.3); EGFR African American 188.9 (>60); EGFR Non-African American 146.9 (>60)
[2017-07-25 08:07] LABS: Magnesium 2.1 mg/dL (1.9-2.7); Potassium 3.7 mmol/L (3.5-5.0)
[2017-07-25 08:36] VITALS: BP 98/52
[2017-07-25] MEDS ORDERED: Ferrous Sulfate TAB* 325 MG PO SCH (09:00)
--- NOTE | 2017-07-25 10:07 | PN ---
Subjective Date of Service: 07/25/17 Interval History: Slept well overnight. Sleepy this morning, but alerts to voice and responds appropriately. She denies pain, but remainder of the review of systems is unable to be obtained due to dementia. She yells out but is redirectable. Family History: Unchanged from Admission Social History: Unchanged from Admission Past Medical History: Unchanged from Admission Objective Active Medications: Acetaminophen (Tylenol Tab*) 650 mg PO Q6H PRN PRN Reason: FEVER/PAIN Last Admin: 07/24/17 15:59 Dose: 650 mg Enoxaparin Sodium (Lovenox(*)) 30 mg SUBCUT 1200 [facility] Last Admin: 07/24/17 11:40 Dose: 30 mg Ferrous Sulfate (Ferrous Sulfate Tab*) 325 mg PO DAILY [facility] Ceftriaxone Sodium 1,000 mg/ (Sodium Chloride) 50 mls @ 200 mls/hr IVPB Q24H [facility] Last Admin: 07/24/17 17:33 Dose: 200 mls/hr Sodium Chloride (Ns 0.9% 1000 Ml*) 1,000 mls @ 100 mls/hr IV PER RATE [facility] Last Admin: 07/25/17 04:54 Dose: 100 mls/hr Lorazepam (Ativan Tab(*)) 0.5 mg PO Q4H PRN PRN Reason: ANXIETY Last Admin: 07/24/17 12:05 Dose: 0.5 mg Mirtazapine (Remeron Tab*) 15 mg PO BEDTIME PRN PRN Reason: INSOMNIA Risperidone (Risperdal) 0.5 mg PO QAM [facility] Last Admin: 07/25/17 09:10 Dose: Not Given Risperidone (Risperdal*) 1 mg PO DAILY@1400 [facility] Last Admin: 07/24/17 13:46 Dose: 1 mg Senna (Senokot Tab*) 2 tab PO BID PRN PRN Reason: CONSTIPATION Venlafaxine HCl (Effexor Tab (Nf)) 75 mg PO BID [facility] Last Admin: 07/24/17 23:23 Dose: Not Given Vital Signs 07/24/17 07/24/17 07/24/17 11:36 12:05 13:57 Temperature 99.5 F Pulse Rate 97 Respiratory 16 18 17 Rate Blood Pressure 141/92 (mmHg) O2 Sat by Pulse 97 Oximetry 07/24/17 07/24/17 07/24/17 15:33 19:55 20:00 Temperature 98.7 F 98.9 F Pulse Rate 107 92 Respiratory 16 20 20 Rate Blood Pressure 122/86 89/65 (mmHg) O2 Sat by Pulse 97 97 Oximetry 07/24/17 07/25/17 07/25/17 23:26 01:40 03:45 Temperature 97.5 F 98.9 F Pulse Rate 81 87 Respiratory 16 18 Rate Blood Pressure 75/47 94/49 120/69 (mmHg) O2 Sat by Pulse 94 93 Oximetry 07/25/17 07/25/17 07:39 08:00 Temperature 99.1 F Pulse Rate 61 Respiratory 16 18 Rate Blood Pressure 98/52 (mmHg) O2 Sat by Pulse 95 Oximetry Oxygen Devices in Use Now: None Appearance: alert, oriented x 0 Ears/Nose/Mouth/Throat: NL Teeth, Lips, Gums Neck: NL Appearance and Movements; NL JVP, Trachea Midline Respiratory: Symmetrical Chest Expansion and Respiratory Effort, Clear to Auscultation Cardiovascular: NL Sounds; No Murmurs; No JVD, RRR Abdominal: NL Sounds; No Tenderness; No Distention Lymphatic: No Cervical Adenopathy Extremities: No Edema Skin: No Rash or Ulcers Neurological: - - poor attention, labile mood Result Diagrams: 07/25/17 07:11 07/25/17 07:11 Additional Lab and Data: Lab Results 07/22/17 07/22/17 07/22/17 Range/Units 15:00 15:00 15:00 WBC 9.0 (3.5-10.8) 10^3/ul RBC 2.57 L (4.0-5.4) 10^6/ul Hgb 7.6 L (12.0-16.0) g/dl Hct 24 L (35-47) % MCV 92 (80-97) fL MCH 30 (27-31) pg MCHC 32 (31-36) g/dl RDW 15 (10.5-15) % Plt Count 833 H D (150-450) 10^3/ul MPV 6 L (7.4-10.4) um3 Neut % (Auto) 72.3 (38-83) % Lymph % (Auto) 16.1 L (25-47) % Kane % (Auto) 10.1 H (1-9) % Eos % (Auto) 0.8 (0-6) % Baso % (Auto) 0.7 (0-2) % Absolute Neuts (auto) 6.5 (1.5-7.7) 10^3/ul Absolute Lymphs (auto) 1.4 (1.0-4.8) 10^3/ul Absolute Monos (auto) 0.9 H (0-0.8) 10^3/ul Absolute Eos (auto) 0.1 (0-0.6) 10^3/ul Absolute Basos (auto) 0.1 (0-0.2) 10^3/ul Absolute Nucleated RBC 0 10^3/ul Nucleated RBC % 0 INR (Anticoag Therapy) 0.99 (0.89-1.11) APTT 30.7 (26.0-36.3) seconds Sodium 139 (133-145) mmol/L Potassium 3.0 L (3.5-5.0) mmol/L Chloride 101 (101-111) mmol/L Carbon Dioxide 32 (22-32) mmol/L Anion Gap 6 (2-11) mmol/L BUN 12 (6-24) mg/dL Creatinine 0.59 (0.51-0.95) mg/dL Est GFR ( Amer) 131.2 (>60) Est GFR (Non-Af Amer) 102.0 (>60) BUN/Creatinine Ratio 20.3 H (8-20) Glucose 115 H (70-100) mg/dL Lactic Acid (0.5-2.0) mmol/L Calcium 8.9 (8.6-10.3) mg/dL Magnesium 2.5 (1.9-2.7) mg/dL Total Bilirubin 0.50 (0.2-1.0) mg/dL AST 11 L (13-39) U/L ALT 4 L (7-52) U/L Alkaline Phosphatase 73 (34-104) U/L Total Creatine Kinase 42 (10-223) U/L CK-MB (CK-2) 0.9 (0.6-6.3) ng/mL Troponin I 0.00 (<0.04) ng/mL C-Reactive Protein 1.96 (< 5.00) mg/L B-Natriuretic Peptide ( - 100) pg/mL Total Protein 6.2 L (6.4-8.9) g/dL Albumin 3.4 (3.2-5.2) g/dL Globulin 2.8 (2-4) g/dL Albumin/Globulin Ratio 1.2 (1-3) TSH Pending 07/22/17 07/22/17 Range/Units 15:00 15:00 WBC (3.5-10.8) 10^3/ul RBC (4.0-5.4) 10^6/ul Hgb (12.0-16.0) g/dl Hct (35-47) % MCV (80-97) fL MCH (27-31) pg MCHC (31-36) g/dl RDW (10.5-15) % Plt Count (150-450) 10^3/ul MPV (7.4-10.4) um3 Neut % (Auto) (38-83) % Lymph % (Auto) (25-47) % Kane % (Auto) (1-9) % Eos % (Auto) (0-6) % Baso % (Auto) (0-2) % Absolute Neuts (auto) (1.5-7.7) 10^3/ul Absolute Lymphs (auto) (1.0-4.8) 10^3/ul Absolute Monos (auto) (0-0.8) 10^3/ul Absolute Eos (auto) (0-0.6) 10^3/ul Absolute Basos (auto) (0-0.2) 10^3/ul Absolute Nucleated RBC 10^3/ul Nucleated RBC % INR (Anticoag Therapy) (0.89-1.11) APTT (26.0-36.3) seconds Sodium (133-145) mmol/L Potassium (3.5-5.0) mmol/L Chloride (101-111) mmol/L Carbon Dioxide (22-32) mmol/L Anion Gap (2-11) mmol/L BUN (6-24) mg/dL Creatinine (0.51-0.95) mg/dL Est GFR ( Amer) (>60) Est GFR (Non-Af Amer) (>60) BUN/Creatinine Ratio (8-20) Glucose (70-100) mg/dL Lactic Acid 0.9 (0.5-2.0) mmol/L Calcium (8.6-10.3) mg/dL Magnesium (1.9-2.7) mg/dL Total Bilirubin (0.2-1.0) mg/dL AST (13-39) U/L ALT (7-52) U/L Alkaline Phosphatase (34-104) U/L Total Creatine Kinase (10-223) U/L CK-MB (CK-2) (0.6-6.3) ng/mL Troponin I (<0.04) ng/mL C-Reactive Protein (< 5.00) mg/L B-Natriuretic Peptide 21 ( - 100) pg/mL Total Protein (6.4-8.9) g/dL Albumin (3.2-5.2) g/dL Globulin (2-4) g/dL Albumin/Globulin Ratio (1-3) TSH Assess/Plan/Problems-Billing Assessment: Mrs. Davila is a 67yo F with PMH of advanced dementia, depression, chronic pain, recent admission for right hip fracture s/p arthroplasty, who presented to ED from [facility] with worsening confusion and anorexia, found to have an UTI. 1. Complicated UTI Culture showing sue-sensitive E. coli; Ceftriaxone Day 3. 2. Acute delirium likely secondary to #1. Continue behavioral redirection. 3. Advanced dementia not on any dementia medications. 4. Hypokalemia resolved after repletion yesterday 5. Normocytic Anemia stable; no bleeding. Iron studies consistent with iron deficiency. Replete with po iron. Status and Disposition: Change to inpatient for management of UTI and anemia requiring >48h for stabilization.
[2017-07-25] MEDS: Enoxaparin(*) 30 MG/0.3 ML SYR SUBCUT SCH (11:06)
[2017-07-25] MEDS: CMCS Venlafaxine TAB (NF) 25 MG TAB PO SCH (11:28)
[2017-07-25] MEDS ORDERED: Polyethylene Glycol 3350* 17 GM PACKET PO PRN (12:12)
--- NOTE | 2017-07-26 06:20 | DS ---
ADDENDUM: DISCHARGE SUMMARY: DATE OF ADMISSION: DATE OF DISCHARGE: HOSPITAL COURSE: 5. Recent right hemiarthroplasty on 07/11/17. The patient is discharged with Lovenox prophylaxis as recommended at the prior hospitalization until 08/13/17. 6. Please evaluate ongoing need for physical therapy. Her activity order continues to be weightbearing as tolerated. [id number]/[facility] #: [id number] MTDD
--- NOTE | 2017-07-26 09:17 | DS ---
ADDENDUM NOW INCLUDED ON THIS REPORT DISCHARGE SUMMARY: DATE OF ADMISSION: 07/22/17 DATE OF DISCHARGE: 07/25/17 PRIMARY CARE PHYSICIAN: Tony Hinton. PRIMARY DIAGNOSIS: Complicated urinary tract infection. SECONDARY DIAGNOSES: 1. Acute delirium. 2. Advanced dementia. 3. Depression. 4. Chronic pain syndrome. 5. Hypokalemia. DISCHARGE MEDICATIONS: 1. Bactrim double strength 1 tab p.o. b.i.d. for 4 more days. 2. Ferrous sulfate 325 mg daily. 3. Venlafaxine 75 mg daily. 4. Senna 2 tabs b.i.d. p.r.n. constipation. 5. Risperdal 1 mg p.o. in the afternoon. Risperdal 0.5 mg p.o. in the morning. 6. Oxycodone 5 mg p.o. q.12 p.r.n. pain. 7. Mild of magnesia 30 mL p.o. daily p.r.n. constipation. HOSPITAL COURSE: 1. Complicated UTI. The patient was sent from [facility] with altered sensorium and was found to have a positive UA in the emergency department. She was started on ceftriaxone. Urine culture grew E. coli that was sensitive to all antibiotics tested except ampicillin. She was transitioned to Bactrim for a 7-day course. 2. Acute delirium likely related to UTI. She had no other metabolic or infectious etiologies to explain her delirium. 3. Normocytic anemia. Iron studies are consistent with iron deficiency and she was started on p.o. iron supplementation. 4. Advanced dementia. She is not on any dementia medication. She resides at [facility]. DISPOSITION: The patient was discharged to [facility] on 07/25/17 with 4 more days of p.o. antibiotics. ADDENDUM: 5. Recent right hemiarthroplasty on 07/11/17. The patient is discharged with Lovenox prophylaxis as recommended at the prior hospitalization until 08/13/17. 6. Please evaluate ongoing need for physical therapy. Her activity order continues to be weightbearing as tolerated. [id number]/[facility] #: [id number] A- [id number]/[facility] #: [id number] [facility]
== END 2017-07-25 13:30 | DRG 690 ==
LOC: ED 14:27 → MEDTELE 19:36 → OBSVTOIN 07-23 17:34
PROVIDERS: ADMIT Hospitalist; ATTEND Internal Medicine
PROC: 30233N1 Transfusion of Nonautologous Red Blood Cells into Peripheral Vein, Percutaneous Approach (ICD-10-PCS; principal; 2017-07-23)
DX: N39.0 Urinary tract infection, site not specified (principal); F03.90 Unspecified dementia, unspecified severity, without behavioral disturbance, psychotic disturbance, mood disturbance, and anxiety; F05 Delirium due to known physiological condition; B96.20 Unspecified Escherichia coli [E. coli] as the cause of diseases classified elsewhere; F32.9 Major depressive disorder, single episode, unspecified; G89.4 Chronic pain syndrome; E87.6 Hypokalemia; D50.9 Iron deficiency anemia, unspecified; Z96.641 Presence of right artificial hip joint; Z66 Do not resuscitate; Z79.1 Long term (current) use of non-steroidal anti-inflammatories (NSAID); Z79.891 Long term (current) use of opiate analgesic; Z79.899 Other long term (current) drug therapy; Z87.891 Personal history of nicotine dependence
CPT/HCPCS: 36415; 70450; 71010; 72125; 80048; 80053; 81003; 81015; 82140; 82270; 82550; 82553; 82607; 82728; 82746; 83540; 83550; 83605; 83735; 83880; 84443; 84484; 85014; 85018; 85025; 85027; 85610; 85730; 86140; 86850; 86900; 86901; 86922; 87040; 87077; 87086; 87186; 90686; 93005; A9270-GY; J0696; J1630; J1650; J2060; J3480; P9040

== ENCOUNTER 2017-10-20 13:49 | Inpatient (IN) | payer MEDICARE, MEDICAID ==
[2017-10-20] MEDS ORDERED: Morphine INJ* 4 MG/ML 1 ML CARPUJECT IM ONE ×2 (14:08→15:44)
[2017-10-20 14:14] VITALS: BP 111/66
--- NOTE | 2017-10-20 15:14 | CONSULT ---
Palliative / Hospice Consult Ordering Provider: Aric Johansen - Subjective Code Status: DNR Advance Directives Location: In Chart MOLST Part A Completed: Yes - DNR MOLST Part E Completed:: Yes - DNI - History or Present Illness History or Present Illness: This 67 year old woman with a history of advanced dementia, delirium, depression, hypokalemia, and recent fall resulting in right hip fracture and surgery for THR in May 2017 has been a resident at [facility]. She has advanced dementia, with no meaningful speech, dependent on total care for all ADLs, unable to ambulate, and incontinent of bowel and bladder. She has an active MOLST form specifying DNR/DNI/DNH, and no feeding tube. The family reports that 2 days ago they were called by the SNF staff and told that the patient was "nearing the end." She has had AMS with agitation, rolling from side to side and crying with pain. The family is distressed about her pain management and wants her to be in a hospice residence. They have located a "comfort care" home, [facility], in [facility], which has two open beds and which accepts hospice patients covered by [facility] in [facility]. The patient has not eaten in several days, and has taken minimal po fluids. She has been treated for pain with a 12 mcg Fentanyl patch, which was just increased to 25 mcg 2 days ago, and with 5 mg p.o. Roxanol Q 2 h p.r.n. 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 - Objective Vital Signs: Vital Signs: Temp Pulse Resp BP Pulse Ox 98.9 F 81 18 111/66 99 10/20/17 13:55 10/20/17 13:55 10/20/17 14:21 10/20/17 13:55 10/20/17 13:55 Patient Weight: Weight 75 lb Intake and Output: Intake & Output 10/18/17 10/19/17 10/20/17 10/21/17 06:59 06:59 06:59 06:59 Weight 75 lb Intake and Output Start: 10/20/17 14: 03 Freq: Status: Active Protocol: Created 10/20/17 14:03 System (Rec: 12/06/17 14:03 System [id number]) General Impression: Cachectic, nonverbal woman, not speaking or responding to voice or touch, rolling in bed with facial grimace. Head: Symmetrical Eyes: No Scleral Icterus Ears/Nose/Mouth/Throat: Clear Oropharnyx Cardiovascular: NL Sounds; No Murmurs; No JVD Respiratory: Symmetrical Chest Expansion and Respiratory Effort Abdominal: NL Sounds; No Tenderness; No Distention Extremities: No Edema, - - Demented, no apparent focal deficits, moves all extremities. - Assessment Assessment: This patient has advanced dementia with sacral decubiti, and is appropriate for hospice services. She is not significantly dehydrated, and I suspect she has more than a few days to live, but the family is very concerned about her status and her pain management. The 2 bed facility in [facility], [facility] (environmental programs manager Fer Arthur [phone]), is willing to accept this patient once she is on hospice services, but [facility] which services [facility] is unable to sign her on today. Her outpatient PCP prior to SNF admission was Dr. Lopez at [facility], and he should be willing to resume outpatient management of this patient on hospice services. I spoke to Dr. Sylvia Woodward who is the attending MD at [facility], and she agrees to take the patient back to [facility] pending transfer to the [facility] hospice service admission at [facility]. We discussed pain management and I suggested taking the patient's total Roxanol dose over 24 hours and translating that to MS Contin longer acting dose (e.g. if she has used 30 mg of Roxanol in the last 24 hours, she could be prescribed 15 mg MSContin BID), with continued Roxanol prescribed for breakthrough pain. It is possible that the Fentanyl is not sufficiently absorbed because of this patient's lack of subcutaneous tissue. She is hospice appropriate with a primary diagnosis of advanced dementia and a secondary diagnosis of decubitus ulcers. Thanks for asking for palliative input. - Plan Consult Plan (MU): Hospice - Time On Unit Date of Evaluation: 10/20/17 Hospice Consult Time in: 14:45 Hospice Consult Time Out: 16:00 Hospice Consult Time Total: 75 > 50% of Time Spend In Counseling or Coordinating Care: Yes
[2017-10-20] MEDS ORDERED: LORazepam INJ* 2 MG/ML 1 ML VIAL IV PUSH ONE ×2 (15:44→17:10)
[2017-10-20] MEDS ORDERED: Morphine INJ* 4 MG/ML 1 ML CARPUJECT IV ONE (17:11)
[2017-10-20] MEDS ORDERED: Morphine ORAL CONCENTRATE* 5 MG/0.25 ML ORAL.SYRIN SL PRN (17:12)
[2017-10-20] MEDS ORDERED: LORazepam TAB(*) 1 MG PO PRN (17:12)
[2017-10-20] MEDS ORDERED: Morphine INJ* 2 MG/ML 1 ML SYRINGE (TWO MG - NEW SYRINGE VERSION) ONE (17:33)
[2017-10-20] MEDS ORDERED: fentaNYL PATCH 50 MCG/HR TRANSDERM SCH ×2 (18:00→23:00)
--- NOTE | 2017-10-20 19:26 | HP ---
CC: Dr. Micah Cervantes * HISTORY AND PHYSICAL: DATE OF ADMISSION: 10/20/17 PRIMARY CARE PROVIDER: Sylvia Woodward MD * (DICTATED BY MAYITO WIGGINS NP) CHIEF COMPLAINT: Pain. HISTORY OF PRESENT ILLNESS: I would like to preface the report by saying that the patient has a significant amount of underlying dementia. She is really unable to give me any past medical history. She essentially is nonverbal. From what I gathered from [facility], is where the patient came from, she has essentially been there since she fractured her hip back in June and has been there recovering. Unfortunately though, she has advanced dementia. Prior to the hip fracture, she has advanced dementia and has had progressive decline since breaking her hip and having it fixed, and over the last week, the patient essentially had become nonverbal, was not eating, having worsening pain. She had been evaluated by hospice before and was deemed an appropriate candidate because of her advanced dementia. The family had declined hospice services at that point, but over the last week, they have noticed this decline and felt that she may be having more progression her disease and they wanted her to go back on the hospice. Unfortunately though, the patient's pain has been unbearable. She has been restless in bed, she has been writhing, she has been calling out despite pain attempts at [facility], so the public safety director there today was concerned and sent her to the ER for further evaluation and better pain management and control. The family is interested in obtaining placement at [facility] in [facility] for further hospice care there insisting comfort, but her pain was unmanageable with q.2 hour 5 mg sublingual morphine and a fentanyl patch. She has a history of chronic pain and may have a high tolerance. So, she was sent here for further evaluation per the recommendations of [facility]. PAST MEDICAL HISTORY: Significant for: 1. Dementia. 2. Depression. 3. Diverticulosis. 4. Chronic pain. PAST SURGICAL HISTORY: She has had a colectomy, ORIF of the right hip. She has had an appendectomy and she has had a hysterectomy. MEDICATIONS: Home meds according to the list provided include: 1. Milk of mag 30 cc daily as needed. 2. as needed. 3. Tylenol Extra Strength 1000 mg every 8 hours as needed. 4. Lidocaine 1 patch transdermally daily. 5. Skin paste 1 application topically daily as needed. 6. Morphine 5 mg p.o. every 2 hours as needed sublingual. 7. Bisacodyl 10 mg p.r. daily as needed. 8. Ativan 0.5 mg every 4 hours as needed. 9. Fentanyl patch 25 mcg p.o. every 72 hours. ALLERGIES TO MEDICATIONS: Include no known drug allergies. FAMILY HISTORY: Unable to be obtained. SOCIAL HISTORY: She is a former smoker. She does not drink alcohol. Surrogate decision maker is her son "Marquis" and her daughter Mari. REVIEW OF SYSTEMS: Unable to be obtained. PHYSICAL EXAMINATION GENERAL: At this time, Ms. Davila is a 67-year-old female patient. She is sitting in the hospital stretcher. She does appear to be in a significant amount of pain. She is restless and tossing back and forth in the bed. She appears to be malnourished. VITAL SIGNS: Blood pressure 111/66, pulse 81, respirations 18, O2 sat 99%, temperature 98.9. HEENT: Head: Atraumatic and normocephalic. Eyes: Sclerae are anicteric. Throat: Oral mucosa appears to be dry. No oropharyngeal erythema. NECK: Supple. LUNGS: Clear to auscultation. HEART: Sounds S1, S2. Regular rate and rhythm. She is tachycardic at a 100. ABDOMEN: Soft, flat, nontender. Bowel sounds present. EXTREMITIES: She is moving 4 extremities grossly. NEUROLOGIC: She will not follow commands. She is not alert. At this point, she is drowsy. She is again tossing back and forth in the bed. She has no gross obvious focal deficits. SKIN: She does have pressure ulcers to the right and left hip into the sacrum, which are covered with DuoDERM. LABORATORY DATA: Labs from 07/25/17, WBC 7.6, RBC of 2.35, hemoglobin 9.7, hematocrit 30, platelet count 609. Sodium is 137, potassium 3.7, chloride 111, bicarb 18, BUN 5, creatinine 0.43, glucose 86. Old medical records were reviewed. ASSESSMENT AND PLAN: Ms. Davila is a 67-year-old female patient who presents to the ER today. Comfort measures were initiated at [facility]. Unfortunately, her pain has been getting progressively worse and she was unable to be controlled there adequately. She had failed conservative therapy at [facility]; and, unfortunately, despite their best efforts, they could not control her pain, so she was sent here. The patient was given IV pain medications and we were asked to evaluate. She will be admitted under observation status for: 1. Intractable pain. Again, after several rounds of morphine here in the ED, she is still in a significant amount of pain. In addition to this, the family states she has not really been taking p.o. since Wednesday. So, p.o. pain meds may be difficult, particularly MS Santacruz, but I think sublingual morphine should be an option. I am going to order sublingual morphine in addition to this IV morphine as a backup, increase her fentanyl patch to 50 mcg and get her on some atropine drops, give her some Ativan to try to help calm her and continue with comfort care. I explained in detail to the family, their main goal is comfort. They understand that she has a terminal dementia. She has had a progressive decline over the last 3 months, and again my prognosis for the patient is poor. I do not expect her to live much longer than a week or 2. The patient was seen by Dr. Jerome. The patient's family would like to have her sent to [facility]. They have a bed for her tomorrow. We just need to have an accepting physician in [facility] that can manage her palliative care. I know Dr. Cervantes was her primary prior to her going to [facility], so we will see if we can contact him to help us with this. In addition to this, we will also need to arrange clearance to [facility] and we will allow Social Work to help us with that dynamic, but for foreign, I am going to try to keep her under control with IV Ativan and IV morphine and sublingual morphine if needed and continue with comfort. 2. Dementia. Continue supportive care. 3. Depression. Continue supportive care. 4. Chronic pain. Again, I have ordered a significant amount of pain meds to help her with the pain. 5. Diverticulosis. Not an active issue. 6. Deep vein thrombosis prophylaxis: She is comfort care. 7. Fluids, electrolytes, and nutrition: She can have a comfort care diet if she awakens up. 8. Code status: She is a DNR. TIME SPENT: Time spent on admission was 60 minutes, greater than half the time was spent [id number] with the patient obtaining my history and physical, other half time was spent going over the plan of care with the patient and implementing plan of care. I did discuss the plan of care with my attending, Dr. Woodward; she is in agreement. MAYITO WIGGINS, CARMEN [id number]/CPS #: [id number] JODI
[2017-10-20] MEDS: Morphine INJ* 4 MG/ML 1 ML CARPUJECT IV PRN (22:55)
[2017-10-20] MEDS: fentaNYL PATCH 50 MCG/HR TRANSDERM SCH (22:56)
[2017-10-20] MEDS: fentaNYL Patch Check Q Shift 1 NOTE SCH (23:01)
[2017-10-21] MEDS: Morphine INJ* 4 MG/ML 1 ML CARPUJECT IV PRN ×5 (01:58→12:09)
[2017-10-21] MEDS: LORazepam INJ* 2 MG/ML 1 ML VIAL IV PUSH PRN ×2 (02:12→17:25)
[2017-10-21] MEDS: fentaNYL Patch Check Q Shift 1 NOTE SCH ×2 (07:21→18:48)
[2017-10-21] MEDS: Lidocaine PATCH 5%* 1 PATCH TRANSDERM SCH (07:33)
--- NOTE | 2017-10-21 08:31 | ED ---
Vasile Taylor Angela, scribed for Aric Johansen MD on 10/20/17 at 1416 . Altered Mental Status - HPI Summary HPI Summary: This pt is a 67 y/o female presenting to [facility] via EMS from [facility] for altered mental status and pain management. Family members report they were called 2 days ago from [facility] because she was "nearing the end." Per family members, pt is in a lot of pain and is moving rolling around a lot more than at baseline. Pt is crying, which is not usual for her, per family members. Per nurse's note, daughter and niece at bedside and they wish for patient to be transferred to [facility] in [place] to receive Hospice care. They feel she is not receiving the care she needs at [facility]. HPI is limited due to level 5 caveat - dementia and AMS. - History Of Current Complaint Chief Complaint: EDAltMentalStatus Stated Complaint: GENERAL ILLNESS Hx Obtained From: Family/Freight Booker - Daughter and niece Hx From Patient Unobtainable Due To: Altered Mental Status Onset/Duration: Still Present Timing: Lasting Days Severity Currently: Severe Character: Confusion, Agitation Aggravating Factor(s): Unknown Alleviating Factor(s): Unknown Related History: Other: - dementia - Allergies/Home Medications Allergies/Adverse Reactions: Allergies Allergy/AdvReac Type Severity Reaction Status Date / Time No Known Allergies Allergy Verified 01/18/16 18:12 Home Medications: Home Medications Acetaminophen [Acetaminophen Extra Stren] 1,000 mg PO Q8HR PRN MDD 3000 mg 10/20 [History Confirmed 10/20/17] Bacitracin OINTMENT* 1 applic TOPICAL DAILY 10/20/17 [History Confirmed 10/20/17 ] Bisacodyl SUPP* [Dulcolax Supp*] 10 mg MD DAILY PRN 10/20/17 [History Confirmed 10/20/17] Calazime Skin Paste 1 applic TOPICAL DAILY PRN 10/20/17 [History Confirmed 10/20] LORazepam TAB(*) [Ativan 0.5 MG TAB (*)] 0.5 mg PO Q4H PRN 10/20/17 [History Confirmed 10/20/17] Lidocaine PATCH 5%* [Lidoderm 5% Patch*] 1 patch TRANSDERM DAILY 10/20/17 [ History Confirmed 10/20/17] Magnesium Hydroxide LIQ* [Milk of Magnesia LIQ*] 30 ml PO DAILY PRN 10/20/17 [ History Confirmed 10/20/17] Morphine ORAL.CONC BULK BOT* [Roxanol ORAL.CONC Bottle*] 5 mg PO Q2HR PRN [History Confirmed 10/20/17] fentaNYL PATCH 25 MCG/HR* [Duragesic PATCH 25 Mcg/Hr*] 25 mcg TRANSDERM Q72H 05/01 [History Confirmed 10/20/17] PMH/Surg Hx/FS Hx/Imm Hx Endocrine/Hematology History: Denies: Hx Anticoagulant Therapy, Hx Blood Disorders, Hx Blood Transfusions, Hx Bone Marrow Disease, Hx Diabetes, Hx Systemic Lupus Erythematosus, Hx Sickle Cell Disease, Hx Thyroid Disease, Hx Anemia, Hx Unexplained Bleeding, Other Endocrine/Hematological Disorders Cardiovascular History: Denies: Hx Hypertension, Hx Pacemaker/ICD Respiratory History: Denies: Hx Asthma, Hx Chronic Obstructive Pulmonary Disease (COPD) GI History: Reports: Hx Diverticulosis - Hx diverticulitis? Denies: Hx Gall Bladder Disease, Hx Gastroesophageal Reflux Disease, Hx Gastrointestinal Bleed, Hx Hiatal Hernia, Hx Irritable Bowel, Hx Jaundice, Hx Obstructive Bowel, Hx Ileostomy, Hx Pyloric Stenosis, Hx Ulcer, Other GI Disorders Musculoskeletal History: Reports: Hx Arthritis - Arthritis in both hands Sensory History: Denies: Hx Contacts or Glasses, Hx Hearing Aid Opthamlomology History: Denies: Hx Contacts or Glasses Neurological History: Reports: Hx Dementia, Other Neuro Impairments/Disorders - alzheimer's Denies: Hx Developmental Delay, Hx Headaches, Hx Migraine, Hx Nerve Disease, Hx Seizures, Hx Spinal Cord Injury, Hx Transient Ischemic Attacks (TIA) Psychiatric History: Reports: Hx Depression - dementia Denies: Hx Anxiety, Hx Attention Deficit Hyperactivity Disorder, Hx Eating Disorder, Hx Panic Disorder, Hx Post Traumatic Stress Disorder, Hx Inpatient Treatment, Hx Community Mental Health Tx, Hx Schizophrenia, Hx Bipolar Disorder , Hx Suicide Attempt, Hx of Violent Episodes Against Others, Hx Substance Abuse , Other Psychiatric Issues/Disorders - Surgical History Surgery Procedure, Year, and Place: Pt. reports having had surgery for diverticulitis, hysterectomy,appendectomy Infectious Disease History: Unable to Obtain/Confirm Infectious Disease History: Denies: Hx Clostridium Difficile, Hx Hepatitis, Hx Human Immunodeficiency Virus (HIV), Hx of Known/Suspected MRSA, Hx Shingles, Hx Tuberculosis, Hx Known/ Suspected VRE, Hx Known/Suspected VRSA, History Other Infectious Disease, Traveled Outside the [place] in Last 30 Days - Family History Known Family History: Positive: Unknown - due to level 5 caveat - AMS, dementia , Hypertension - Social History Alcohol Use: None Hx Substance Use: No Substance Use Type: Reports: None Hx Tobacco Use: Yes - smokes half a pack per day Smoking Status (MU): Former Smoker Type: Cigarettes Amount Used/How Often: 1 ppd Length of Time of Smoking/Using Tobacco: "At least 40 years." Have You Smoked in the Last Year: No Review of Systems - ROS Summary Review of Systems Summary: ROS is limited due to level 5 caveat - AMS and dementia. Constitutional: Other - crying, rolling around a lot Negative: Fever, Chills Musculoskeletal: Other - pain all over Neurological: Other - altered mental status, dementia All Other Systems Reviewed And Are Negative: No Physical Exam - Summary Physical Exam Summary: VITAL SIGNS: Reviewed. GENERAL: Patient is an elderly and cachectic female is moving a lot, more than at baseline, per family members. Patient is not in any acute respiratory distress. HEAD AND FACE: No signs of trauma. No ecchymosis, hematomas or skull depressions. No sinus tenderness. EYES: PERRLA, EOMI x 2, No injected conjunctiva, no nystagmus. EARS: Hearing grossly intact. Ear canals and tympanic membranes are within normal limits. MOUTH: Oropharynx within normal limits. NECK: Supple, trachea is midline, no adenopathy, no JVD, no carotid bruit, no c- spine tenderness, neck with full ROM. CHEST: Symmetric, no tenderness at palpation LUNGS: Clear to auscultation bilaterally. No wheezing or crackles. CVS: Regular rate and rhythm, S1 and S2 present, no murmurs or gallops appreciated. ABDOMEN: Soft, non-tender. No signs of distention. No rebound no guarding, and no masses palpated. Bowel sounds are normal. EXTREMITIES: FROM in all major joints, no edema, no cyanosis or clubbing. NEURO: Alert but not oriented. Pt has dementia. No acute neurological deficits. SKIN: Dry and warm Triage Information Reviewed: Yes Vital Signs On Initial Exam: Initial Vitals Temp Pulse Resp BP Pulse Ox 98.9 F 81 18 111/66 99 10/20/17 13:55 10/20/17 13:55 10/20/17 13:55 10/20/17 13:55 10/20/17 13:55 Vital Signs Reviewed: Yes Completion Of Physical Exam Limited Due To: Dementia, Altered Mental Status Diagnostics - Vital Signs Vital Signs Temp Pulse Resp BP Pulse Ox 10/20/17 13:55 98.9 F 81 18 111/66 99 - Laboratory Lab Statement: Any lab studies that have been ordered have been reviewed, and results considered in the medical decision making process. Altered Mental Statu Course/Dx - Course Assessment/Plan: This pt is a 67 y/o female presenting to [facility] via EMS from [facility] for altered mental status and pain management. Family members report they were called 2 days ago from [facility] because she was "nearing the end." Per family members, pt is in a lot of pain and is moving rolling around a lot more than at baseline. Pt is crying, which is not usual for her, per family members. Per nurse's note, daughter and niece at bedside and they wish for patient to be transferred to [facility] in [place] to receive Hospice care. They feel she is not receiving the care she needs at [facility]. HPI is limited due to level 5 caveat - dementia and AMS. The pt is here for comfort care and pain control. Also, the family members requested to get palliative care consult. The pt was consulted by Dr. Jerome from palliative care and reports the pt can be discharged home with pain management. We gave the pt morphine twice with Ativan because the family members think the pt is in severe pain, which is why they think she is rocking back and forth. The pt is resting comfortably now. The family members refuse for the pt to be discharged home back to [facility]. I discussed the case with Dr. Woodward, who will admit the pt for further care and pain management. - Diagnoses Discharge Diagnoses: Pain management, Altered mental status, Dementia - Provider Notifications Discussed Care Of Patient With: Sylvia Woodward Time Discussed With Above Provider: 17:11 Instructed by Provider To: Other - I discussed the pt's case with Dr. Woodward, who has accepted the pt for admission. Discharge - Discharge Plan Condition: Stable Disposition: ADMITTED TO [facility] The documentation as recorded by the Vasile george Angela accurately reflects the service I personally performed and the decisions made by me, Aric Johansen MD.
--- NOTE | 2017-10-21 13:48 | PN ---
Subjective Date of Service: 10/21/17 Interval History: HOSPITALIST PROGRESS NOTE Patient seen at bedside. Sleeping, appears comfortable, I did not wake her up. Family History: Unchanged from Admission Social History: Unchanged from Admission Past Medical History: Unchanged from Admission Objective Active Medications: Atropine Sulfate (Atropine 1% (Oral/Sl)*) 2 drop SL Q2H PRN PRN Reason: DISCOMFORT Fentanyl (Duragesic Patch 50 Mcg/Hr*) 50 mcg TRANSDERM Q72H [facility] Last Admin: 10/20/17 22:56 Dose: 50 mcg Lidocaine (Lidoderm 5% Patch*) 1 patch TRANSDERM DAILY [facility] Last Admin: 10/21/17 07:33 Dose: 1 patch Lorazepam (Ativan Inj*) 1 mg IV PUSH Q6H PRN PRN Reason: ANXIETY Last Admin: 10/21/17 02:12 Dose: 1 mg Lorazepam (Ativan Tab(*)) 1 mg PO Q6H PRN PRN Reason: ANXIETY Morphine Sulfate (Morphine Inj (Syringe)*) 4 mg IV Q2H PRN PRN Reason: PAIN Last Admin: 10/21/17 12:09 Dose: 4 mg Morphine Sulfate (Morphine Oral Concentrate*) 5 mg SL Q1H PRN PRN Reason: PAIN Pharmacy Profile Note (Fentanyl Patch Check Q Shift) 1 note N/A 0700,1900 [facility] Last Admin: 10/21/17 07:21 Dose: 1 note Vital Signs - 8 hr 10/21/17 10/21/17 10/21/17 07:24 07:32 09:22 Respiratory 12 12 12 Rate 10/21/17 10/21/17 10/21/17 09:54 10:00 11:18 Respiratory 12 12 12 Rate 10/21/17 10/21/17 12:09 13:11 Respiratory 12 12 Rate Oxygen Devices in Use Now: None Appearance: Elderly lady lying in bed in NAD. Respiratory: Symmetrical Chest Expansion and Respiratory Effort, Clear to Auscultation Cardiovascular: RRR Abdominal: NL Sounds; No Tenderness; No Distention - S1 and S2 Neurological: - - Sleeping, I did not wake her up Assess/Plan/Problems-Billing Assessment: Mrs. Davila is a 67yo F with advanced dementia, recent admission with right hip fracture s/p ORIF, who has had progressive decline in her condition and intractable pain at SNF, admitted for pain management. - Patient Problems (1) Intractable pain Comment: - Palliative care input appreciated. - Patient is too lethargic to swallow pills now, so it will difficult to give MS Contin. - Fentanyl patch was increased to 50mcg, Morphine concentrate 5mg SL q1h, and Ativan 1 mg SL q4h. - She is more comfortable at this time. - Awaiting family's decision re: where will she receive Hospice care. (2) DNR (do not resuscitate)
[2017-10-21] MEDS: Morphine ORAL CONCENTRATE* 5 MG/0.25 ML ORAL.SYRIN SL PRN ×5 (14:15→22:13)
[2017-10-21] MEDS: fentaNYL PATCH 50 MCG/HR TRANSDERM SCH (19:24)
[2017-10-22] MEDS: Morphine ORAL CONCENTRATE* 5 MG/0.25 ML ORAL.SYRIN SL PRN ×11 (00:36→23:37)
[2017-10-22] MEDS: fentaNYL Patch Check Q Shift 1 NOTE SCH ×2 (06:52→18:41)
[2017-10-22] MEDS: Lidocaine PATCH 5%* 1 PATCH TRANSDERM SCH (07:42)
--- NOTE | 2017-10-22 08:59 | PN ---
Subjective Date of Service: 10/22/17 Interval History: HOSPITALIST PROGRESS NOTE Patient seen and examined at bedside. Patient unresponsive at this time, appears to be comfortable. Family History: Unchanged from Admission Social History: Unchanged from Admission Past Medical History: Unchanged from Admission Objective Active Medications: Atropine Sulfate (Atropine 1% (Oral/Sl)*) 2 drop SL Q2H PRN PRN Reason: DISCOMFORT Fentanyl (Duragesic Patch 50 Mcg/Hr*) 50 mcg TRANSDERM Q72H [facility] Last Admin: 10/21/17 19:24 Dose: 50 mcg Lidocaine (Lidoderm 5% Patch*) 1 patch TRANSDERM DAILY [facility] Last Admin: 10/22/17 07:42 Dose: 1 patch Lorazepam (Ativan Inj*) 1 mg IV PUSH Q6H PRN PRN Reason: ANXIETY Last Admin: 10/21/17 17:25 Dose: 1 mg Lorazepam (Ativan Tab(*)) 1 mg PO Q6H PRN PRN Reason: ANXIETY Morphine Sulfate (Morphine Inj (Syringe)*) 4 mg IV Q2H PRN PRN Reason: PAIN Last Admin: 10/21/17 12:09 Dose: 4 mg Morphine Sulfate (Morphine Oral Concentrate*) 5 mg SL Q1H PRN PRN Reason: PAIN Last Admin: 10/22/17 07:42 Dose: 5 mg Pharmacy Profile Note (Fentanyl Patch Check Q Shift) 1 note N/A 0700,1900 [facility] Last Admin: 10/22/17 06:52 Dose: 1 note Vital Signs - 8 hr 10/22/17 10/22/17 10/22/17 02:50 03:05 05:59 Respiratory 12 12 12 Rate 10/22/17 10/22/17 06:00 07:42 Respiratory 12 12 Rate Oxygen Devices in Use Now: None Appearance: Elderly chachectic lady lying in bed in [facility]. Respiratory: Symmetrical Chest Expansion and Respiratory Effort, Clear to Auscultation Cardiovascular: RRR - Normal S1 and S2 Neurological: - - Unresponsive Assess/Plan/Problems-Billing Assessment: Mrs. Davila is a 67yo F with advanced dementia, recent admission with right hip fracture s/p ORIF, who has had progressive decline in her condition and intractable pain at SNF, admitted for pain management. - Patient Problems (1) Intractable pain Comment: - Palliative care input appreciated. - Patient is too lethargic to swallow pills now, so it will difficult to give MS Contin. - Continue current regimen of Fentanyl patch 50mcg, Morphine concentrate 5mg SL q1h, and Ativan 1 mg SL q4h. - Comfortable at this time. - Continue comfort care measures in the hospital while we wait family decision re: placement. (2) DNR (do not resuscitate)
[2017-10-22] MEDS: Atropine 1% (ORAL/SL)* 15 ML BTL SL PRN ×2 (17:42→23:37)
[2017-10-23] MEDS: Morphine ORAL CONCENTRATE* 5 MG/0.25 ML ORAL.SYRIN SL PRN ×10 (01:15→18:15)
[2017-10-23] MEDS: Atropine 1% (ORAL/SL)* 15 ML BTL SL PRN (03:04)
[2017-10-23] MEDS: fentaNYL Patch Check Q Shift 1 NOTE SCH ×2 (07:45→18:15)
[2017-10-23] MEDS: Lidocaine PATCH 5%* 1 PATCH TRANSDERM SCH (09:51)
--- NOTE | 2017-10-23 14:55 | PN ---
Subjective Date of Service: 10/23/17 Interval History: Patient lying in bed, sleeping Family in attendance, no concerns. She is reported to wake a bit, move mouth, in minutes just before hourly ativan dose. Family History: Unchanged from Admission Social History: Unchanged from Admission Past Medical History: Unchanged from Admission Objective Active Medications: Atropine Sulfate (Atropine 1% (Oral/Sl)*) 2 drop SL Q2H PRN PRN Reason: DISCOMFORT Last Admin: 10/23/17 03:04 Dose: 2 drop Fentanyl (Duragesic Patch 50 Mcg/Hr*) 50 mcg TRANSDERM Q72H [facility] Last Admin: 10/21/17 19:24 Dose: 50 mcg Lidocaine (Lidoderm 5% Patch*) 1 patch TRANSDERM DAILY [facility] Last Admin: 10/23/17 09:51 Dose: 1 patch Lorazepam (Ativan Inj*) 1 mg IV PUSH Q6H PRN PRN Reason: ANXIETY Last Admin: 10/21/17 17:25 Dose: 1 mg Lorazepam (Ativan Tab(*)) 1 mg PO Q6H PRN PRN Reason: ANXIETY Morphine Sulfate (Morphine Inj (Syringe)*) 4 mg IV Q2H PRN PRN Reason: PAIN Last Admin: 10/21/17 12:09 Dose: 4 mg Morphine Sulfate (Morphine Oral Concentrate*) 5 mg SL Q1H PRN PRN Reason: PAIN Last Admin: 10/23/17 13:56 Dose: 5 mg Pharmacy Profile Note (Fentanyl Patch Check Q Shift) 1 note N/A 0700,1900 [facility] Last Admin: 10/23/17 07:45 Dose: 1 note Vital Signs - 8 hr 10/23/17 10/23/17 10/23/17 07:47 07:50 08:00 Respiratory 7 7 8 Rate 10/23/17 10/23/17 10/23/17 09:51 09:58 12:45 Respiratory 7 7 10 Rate 10/23/17 10/23/17 10/23/17 12:47 13:56 14:34 Respiratory 10 6 10 Rate Oxygen Devices in Use Now: None Nutrition: - - not eating Assess/Plan/Problems-Billing Assessment: Mrs. Davila is a 67yo F with advanced dementia, recent admission with right hip fracture s/p ORIF, who has had progressive decline in her condition and intractable pain at SNF, admitted for pain management. - Patient Problems (1) Intractable pain Current Visit: Yes Status: Acute Priority: Medium Code(s): R52 - PAIN, UNSPECIFIED SNOMED Code(s): 61788905 Comment: - Palliative care input appreciated. - Continue current regimen of Fentanyl patch 50mcg, Morphine concentrate 5mg SL q1h, and Ativan 1 mg SL q4h. - Comfortable at this time. - Continue comfort care measures in the hospital while we wait family decision re: placement. (2) Palliative care status Current Visit: Yes Status: Acute Priority: Medium Code(s): Z51.5 - ENCOUNTER FOR PALLIATIVE CARE SNOMED Code(s): 381456071 Comment: - discussed palliative approach with family Status and Disposition: I expect she will in hospital before placement decided.
[2017-10-23] MEDS: Morphine INJ* 4 MG/ML 1 ML CARPUJECT IV PRN (18:43)
[2017-10-23] MEDS ORDERED: Morphine PCA ADULT* 5 MG/ML 30 ML PCA SCH (19:00)
[2017-10-23] MEDS: LORazepam TAB(*) 1 MG PO PRN (21:57)
[2017-10-24] MEDS: fentaNYL PATCH 50 MCG/HR TRANSDERM SCH (04:01)
[2017-10-24] MEDS: fentaNYL Patch Check Q Shift 1 NOTE SCH ×2 (06:41→18:41)
[2017-10-24] MEDS: LORazepam TAB(*) 1 MG PO PRN (08:23)
[2017-10-24] MEDS: Lidocaine PATCH 5%* 1 PATCH TRANSDERM SCH ×2 (08:24→11:05)
--- NOTE | 2017-10-24 11:57 | PN ---
Subjective Date of Service: 10/24/17 Interval History: No new concerns from family. She had resp rate of 2-3/min overnight. They are asking how long this can go on. Family History: Unchanged from Admission Social History: Unchanged from Admission Past Medical History: Unchanged from Admission Objective Active Medications: Atropine Sulfate (Atropine 1% (Oral/Sl)*) 2 drop SL Q2H PRN PRN Reason: DISCOMFORT Last Admin: 10/23/17 03:04 Dose: 2 drop Fentanyl (Duragesic Patch 50 Mcg/Hr*) 50 mcg TRANSDERM Q72H GURDEEP Last Admin: 10/24/17 04:01 Dose: 50 mcg Morphine Sulfate (Morphine Supervisor Assembly Adult* 5 Mg/Ml) 30 mls @ 0 mls/hr COLD REDUCTION ROLLER .change Q24H GURDEEP; Per Protocol PRN Reason: Protocol Last Admin: 10/23/17 19:47 Dose: 0.4 mls/hr Lidocaine (Lidoderm 5% Patch*) 1 patch TRANSDERM DAILY [facility] Last Admin: 10/24/17 11:05 Dose: Not Given Lorazepam (Ativan Tab(*)) 1 mg PO Q3H PRN PRN Reason: ANXIETY Last Admin: 10/24/17 08:23 Dose: 1 mg Morphine Sulfate (Morphine Inj (Syringe)*) 4 mg IV Q2H PRN PRN Reason: PAIN Last Admin: 10/23/17 18:43 Dose: 4 mg Pharmacy Profile Note (Fentanyl Patch Check Q Shift) 1 note N/A 0700,1900 [facility] Last Admin: 10/24/17 06:41 Dose: 1 note Vital Signs - 8 hr 10/24/17 10/24/17 10/24/17 03:57 04:01 08:00 Respiratory 6 6 5 Rate O2 Sat by Pulse Oximetry 10/24/17 10/24/17 10/24/17 08:09 08:23 11:00 Respiratory 5 5 6 Rate O2 Sat by Pulse 95 Oximetry Oxygen Devices in Use Now: None Appearance: lying in bed, unresponsive Lines/Tubes/Other Access: Clean, Dry and Intact Peripheral IV Assess/Plan/Problems-Billing Assessment: Mrs. Davila is a 67yo F with advanced dementia, recent admission with right hip fracture s/p ORIF, who has had progressive decline in her condition and intractable pain at SNF, admitted for pain management. - Patient Problems (1) Intractable pain Current Visit: Yes Status: Acute Priority: Medium Code(s): R52 - PAIN, UNSPECIFIED SNOMED Code(s): 35184559 Comment: - Palliative care input appreciated. - Continue current regimen of Fentanyl patch 50mcg, Morphine COLD REDUCTION ROLLER 4 mg/hr, and Ativan 1 mg SL q3h. - Comfortable at this time. - Continue comfort care measures in the hospital while we wait family decision re: placement. (2) Palliative care status Current Visit: Yes Status: Acute Priority: Medium Code(s): Z51.5 - ENCOUNTER FOR PALLIATIVE CARE SNOMED Code(s): 506498356 Comment: - discussed palliative approach with family Status and Disposition: I expect she will in hospital before placement arranged.
[2017-10-24] MEDS: Morphine INJ* 4 MG/ML 1 ML CARPUJECT IV PRN (17:04)
--- NOTE | 2017-10-25 05:23 | DS ---
CC: [facility]; Dr. Woodawrd; Dr. Cervantes * SUMMARY: DATE OF ADMISSION: 10/20/17 DATE OF DISCHARGE: 10/24/17 ATTENDING PROVIDER: Earl Carreon MD * (DICTATED BY MARIBETH STEIN) PRINCIPAL DIAGNOSIS: Include respiratory failure. SECONDARY DIAGNOSES: Include: 1. Severe dementia. 2. Cachexia. 3. Delirium. 4. Depression. 5. Intractable pain. HISTORY OF PRESENT ILLNESS: Ms. Davila was admitted on the from the ER due to retractable pain. The patient has been unable to take p.o. pain medicine , she probably was not getting adequate pain control at [facility]. She was sent to the hospital for more aggressive pain management and pain control. Initially, the plan was that the patient discharged to [facility] on 10/21/17; however, she continued to deteriorate. She had become nonverbal and unresponsive and really was not able to be transferred. She was not swallowing pills. The patient was given a fentanyl patch, morphine concentrate, and Ativan. The patient continued with comfort care measures. She remained comfortable with IV narcotics. The patient remained unresponsive. She had 1 episode of slight response in the night, but then she was becoming apneic in the slower rate of breathing throughout the day today. The patient remained comfortable and at 1927 tonight she had become apneic and had no auscultated heart sounds, was pronounced in the care of her family. Autopsy was declined. The patient's family is wishing to use [facility], and the patient will be discharged to the [facility]. TIME SPENT: Time spent on the discharge was 20 minutes. This is a complex medical case, refer the medical chart for full details. Please for my review. MAYITO WIGGINS, CARMEN [id number]/[facility] #: [id number] JODI
== END 2017-10-24 19:27 | disposition expired | DRG 189 ==
LOC: ED 13:49 → MED 17:11 → OBSVTOIN 10-21 15:00 → MED 10-21 16:00
PROVIDERS: ADMIT Internal Medicine; ATTEND Internal Medicine
DX: J96.00 Acute respiratory failure, unspecified whether with hypoxia or hypercapnia (principal); R64 Cachexia; F33.9 Major depressive disorder, recurrent, unspecified; Z68.1 Body mass index [BMI] 19.9 or less, adult; F03.90 Unspecified dementia, unspecified severity, without behavioral disturbance, psychotic disturbance, mood disturbance, and anxiety; R41.0 Disorientation, unspecified; Z79.1 Long term (current) use of non-steroidal anti-inflammatories (NSAID); Z79.899 Other long term (current) drug therapy; Z87.891 Personal history of nicotine dependence; R52 Pain, unspecified
CPT/HCPCS: 87641; A9270-GY; J2060; J2270